=== PATIENT | male | born 1935 | race Caucasian/White ===

== ENCOUNTER → 2020-04-19 10:47 | Outpatient (BNVA) | payer MEDICARE, SELFPAY | PROVIDERS: Family Provider Family Medicine; PCP Family Medicine; Visit Provider Family Medicine | DX: I10 Essential (primary) hypertension (principal); I25.10 Atherosclerotic heart disease of native coronary artery without angina pectoris; I48.91 Unspecified atrial fibrillation; Z95.0 Presence of cardiac pacemaker; Z79.899 Other long term (current) drug therapy | CPT/HCPCS: 36415; 80053; 80061; 84439; 84443; 85025 ==

== ENCOUNTER → 2021-08-02 09:09 | Outpatient (BNVA) | payer MEDICARE, SELFPAY | PROVIDERS: Family Provider Family Medicine; PCP Family Medicine; Visit Provider Family Medicine | DX: I10 Essential (primary) hypertension (principal); I25.10 Atherosclerotic heart disease of native coronary artery without angina pectoris | CPT/HCPCS: 80053; 80061; 84439; 84443; 85025 ==

== ENCOUNTER → 2022-11-29 08:42 | Outpatient (BNVA) | payer MEDICARE, SELFPAY | PROVIDERS: Family Provider Family Medicine; PCP Family Medicine; Visit Provider Family Medicine | DX: R41.82 Altered mental status, unspecified (principal) | CPT/HCPCS: 81003; 87086 ==

== ENCOUNTER → 2024-06-09 09:40 | Outpatient (BNVA) | payer MEDICARE, MEDICAID, SELFPAY | PROVIDERS: Family Provider Family Medicine; PCP Family Medicine; Visit Provider Family Medicine | DX: R82.90 Unspecified abnormal findings in urine (principal) | CPT/HCPCS: 81000; 87086 ==

== ENCOUNTER 2024-06-15 08:59 | Emergency (ER) | payer MEDICARE, MEDICAID, SELFPAY ==
[2024-06-15] VITALS (11 sets, daily range): BP systolic 112–145; BP diastolic 52–85; PULSE 72–87; RESP 14–20; TEMP 36.6; O2SAT 94–98; BMI 23.6
--- NOTE | 2024-06-15 09:09 | ED_ITS ---
HPI - General Adult 2 General: Chief complaint: Altered Mental Status Stated complaint: ams - uti Time Seen by Provider: 06/15/24 09:08 History of Present Illness: 88-year-old male present s to the ER wit h AMS, no family present. He is from [place] in [facility]. Also complaining of L hip pain. [facility] had not x-[facility]ed anything because they did not note any deformities. Patient is currently on antibiotics and Azo's at the [facility] per their report. Associated symptoms: Deny chest pain, dyspnea or rash Related Data Home Medications Medication Instructions Recorded Confirmed loperamide 2 mg capsule 2 mg PO Q6H PRN Diarrhea 06/11/23 06/15/24 (Anti-Diarrheal (loperamide)) ondansetron HCl 8 mg tablet 8 mg PO Q8H PRN nausea and vomiting 06/11/23 06/15/24 acetaminophen 325 mg capsule 325 mg PO Q6H PRN Pain 06/20/23 06/15/24 (Tylenol) cholecalciferol (vitamin D3) 125 125 mcg PO DAILY 06/20/23 06/15/24 mcg (5,000 unit) capsule magnesium hydroxide 400 mg/5 mL 10 ml PO TID PRN stomach upset 06/20/23 06/15/24 oral suspension (Milk of Magnesia) furosemide 40 mg tablet 80 mg PO QAM edema 09/29/23 06/15/24 spironolactone 25 mg tablet 25 mg PO DAILY 09/29/23 06/15/24 tramadol 50 mg tablet 50 mg PO DAILY PRN Pain 01/01/24 06/15/24 bisacodyl 10 mg rectal suppository 10 mg SC DAILY 06/15/24 06/15/24 Previous Rx's Medication Instructions Recorded benazepril 40 mg tablet 40 mg PO DAILY #14 tabs 10/26/22 metoprolol succinate 25 mg See Rx Instructions .Route 10/26/22 tablet,extended release 24 hr .COMPLEX #14 tabs metoprolol succinate 50 mg 50 mg PO DAILY #14 tabs 10/26/22 tablet,extended release 24 hr potassium chloride 20 mEq 20 meq PO DAILY #14 tabs 10/26/22 tablet,extended release Allergies Allergy/AdvReac Type Severity Reaction Status Date / Time No Known Allergies Allergy Verified 08/27/24 22:21 Review of Systems 2 Const: Denies: fever(s) or chills Card: Denies: chest pain Resp: Denies: dyspnea GI: Denies: abdominal pain : Denies: dysuria, urinary frequency or urinary urgency Musc: Denies: neck pain or back pain Skin/Breast: Denies: rash PFSH ED 2 PFSH: Medical History Fracture Both wrists with hardware Unsteadiness on feet Muscle weakness (generalized) Acute systolic (congestive) heart failure Unspecified dementia, mild, without behavioral disturbance, psychotic disturbance, mood disturbance, and anxiety Essential (primary) hypertension Permanent atrial fibrillation Tonic pupil, right eye Intermittent exophthalmos, 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 attack (TIA), and cerebral infarction without residual deficits Cardiomyopathy, unspecified Anisocoria Repeated falls Metabolic encephalopathy Rhabdomyolysis Syncope and collapse Traumatic arthropathy, left hip Generalized edema Difficulty in walking, not elsewhere classified Weakness Hypokalemia Vitamin D deficiency, unspecified Localized edema Atrial fibrillation Pacemaker with Defibulator Hypertension Surgical History History of appendectomy Presence of left artificial hip joint Social History Smoking and tobacco/nicotine status: unknown if used tobacco/nicotine Quit status (tobacco/nicotine): has quit using Year quit tobacco: age 17, smoked 2 years Alcohol intake: never Physical Exam 2 Const: ORIENTATION/CONSCIOUSNESS: Yes awake HENMT: COMMON NORMALS: normocephalic, atraumatic and hearing grossly normal bilaterally HEAD & SCALP: normocephalic and atraumatic Resp: COMMON NORMALS: normal respiratory effort, No retractions, No use of accessory muscles and clear to auscultation bilaterally AUSCULTATION: clear to auscultation bilaterally Cardio: COMMON NORMALS: regular rate, regular rhythm and No murmurs present (Cardio) RATE: regular rate RHYTHM: regular rhythm GI: COMMON NORMALS: No hepatosplenomegaly present AUSCULTATION: Yes normoactive bowel sounds PALPATION: Yes Tenderness to palpation present (GI), No Guarding due to palpation present (GI) and Yes No hepatosplenomegaly present Extremity: COMMON NORMALS: normal to inspection, capillary refill normal, no clubbing, cyanosis or edema, no calf tenderness and no pedal edema Skin: COMMON NORMALS: no rashes or lesions noted GENERAL SKIN EXAM: no rashes or lesions noted Course 2 Vital Signs: Vital signs: Vital Signs Temperature 97.9 F 06/15/24 09:00 Pulse Rate 93 06/16/24 00:12 Respiratory Rate 18 06/16/24 00:12 Blood Pressure 139/77 06/16/24 00:12 Pulse Oximetry 97 06/16/24 00:12 Oxygen Delivery Me thod Room Air 06/15/24 22:00 MDM - General Adult Medical Decision Making UA shows positive nitrites +1 leukocyte Estrace however there is no white blood cells. Believe this is probably a partially treated UTI. Patient did have significant urinary retention but no compromise of renal function at this time. Lo catheter left in place for urinary retention. No leukocytosis. [facility] complete course of antibiotics. CT of the head did not show any acute changes. No fracture on pelvis or hip x-rays Medical Records I reviewed the patient's medical records. Lab Data I reviewed the patient's lab results. 06/15/24 09:30 06/15/24 10:16 Radiology Impressions Hip/Pelvis X-Ray 06/15/24 09:23 IMPRESSION: No acute abnormality. Pelvis X-Ray 06/15/24 10:42 IMPRESSION: No acute fracture identified. Head CT 06/15/24 11:46 IMPRESSION: 1. No evidence of intracranial hemorrhage or mass effect. 2. Chronic encephalomalacia in the parasagittal inferior frontal lobes likely due to prior trauma. 3. Vascular calcification. 4. No acute intracranial findings. Laboratory Results WBC 11.06 10^3/uL (3.29-11.43) 06/15/24 09:30 RBC 3.94 10^6/uL (3.85-5.65) 06/15/24 09:30 Hgb 11.90 g/dL (11.27-16.99) 06/15/24 09:30 Hct 36.3 % (37-53) L 06/15/24 09:30 MCV 92.1 fl (82-101) 06/15/24 09:30 MCH 30.2 pg (27-33) 06/15/24 09:30 MCHC 32.8 g/dL (30-55) 06/15/24 09:30 RDW 13.2 % (12.1-15.1) 06/15/24 09:30 Plt Count 226 10^3/cmm (157-399) 06/15/24 09:30 MPV 9.4 fL (7.4-10.4) 06/15/24 09:30 Neut % (Auto) 72.7 % 06/15/24 09:30 Lymph % (Auto) 14.9 % 06/15/24 09:30 [place] % (Auto) 10.9 % 06/15/24 09:30 Eos % (Auto) 0.7 % 06/15/24 09:30 Baso % (Auto) 0.3 % 06/15/24 09:30 Neut # (Auto) 8.03 10^3/uL (1.8-7.7) H 06/15/24 09:30 Lymph # (Auto) 1.7 10^3/uL (0.8-4.8) 06/15/24 09:30 [place] # (Auto) 1.2 10^3/uL (0.2-0.9) H 06/15/24 09:30 Eos # (Auto) 0.1 10^3/uL (0.0-0.8) 06/15/24 09:30 Baso # (Auto) 0.0 10^3/uL (0.0-0.1) 06/15/24 09:30 Nucleated RBC % (auto) 0 % 06/15/24 09:30 Nucleated RBCs # 0.0 /100WBC 06/15/24 09:30 Sodium 133 mmol/L (136-145) L 06/15/24 10:16 Potassium 4.4 mmol/L (3.5-5.1) 06/15/24 10:16 Chloride 97 mmol/L (98-107) L 06/15/24 10:16 Carbon Dioxide 25 mmol/L (22-29) 06/15/24 10:16 Anion Gap 15.4 (5-19) 06/15/24 10:16 BUN 25 mg/dL (8-23) H 06/15/24 10:16 Creatinine 0.9 mg/dL (0.7-1.2) 06/15/24 10:16 GFR Calculation Not Reportable 06/15/24 10:16 Glucose 124 mg/dL (65-115) H 06/15/24 10:16 Calculated Osmolality 282 mOsm/kg (285-295) L 06/15/24 10:16 Lactic Acid 1.1 mmol/L (0.5-2.2) 06/15/24 09:30 Calcium 8.9 mg/dL (8.5-10.5) 06/15/24 10:16 Total Bilirubin 1.0 mg/dL (0.15-1.2) 06/15/24 10:16 AST 16 U/L (0-40) 06/15/24 10:16 ALT 9 U/L (0-41) 06/15/24 10:16 Alkaline Phosphatase 65 U/L (40-130) 06/15/24 10:16 Total Protein 6.9 g/dL (6.6-8.7) 06/15/24 10:16 Albumin 3.7 g/dL (3.5-5.2) 06/15/24 10:16 Globulin 3.2 g/dL (1.3-4.6) 06/15/24 10:16 Urine Color [place] (Yellow) A 06/15/24 10:34 Urine Appearance Clear (CLEAR) 06/15/24 10:34 Urine pH 5.0 (5-7) 06/15/24 10:34 Ur Specific [place] 1.016 (1.005-1.030) 06/15/24 10:34 Urine Protein Trace (Negative) A 06/15/24 10:34 Urine Glucose (UA) Negative (Normal) 06/15/24 10:34 Urine Ketones Negative (Negative) 06/15/24 10:34 Urine Blood Negative (Negative) 06/15/24 10:34 Urine Nitrate Positive (Negative) A 06/15/24 10:34 Urine Bilirubin Negative (Negative) 06/15/24 10:34 Urine Urobilinogen 1.0 mg/dL (Negative) 06/15/24 10:34 Ur Leukocyte Esterase 1+ (Negative) A 06/15/24 10:34 Urine RBC 0-2 /hpf (0-2) 06/15/24 10:34 Urine WBC 0-5 /hpf (0-5) 06/15/24 10:34 Ur Squamous Epith Cells 0-5 /hpf (0-5) 06/15/24 10:34 Amorphous Sediment Not Reportable 06/15/24 10:34 Urine Bacteria None seen /hpf (NONE) 06/15/24 10:34 Hyaline Casts 8.67 /lpf 06/15/24 10:34 All radiology interpretation(s) finalized by discharge Discharge Plan Discharge Patient Disposition: Home Clinical Impression: Acute urinary retention, Cystitis Condition: Stable Prescriptions: No Action spironolactone 25 mg tablet 25 mg PO DAILY furosemide 40 mg tablet 80 mg PO QAM loperamide [Anti-Diarrheal (loperamide)] 2 mg capsule 2 mg PO Q6H PRN (Reason: Diarrhea) ondansetron HCl 8 mg tablet 8 mg PO Q8H PRN (Reason: nausea and vomiting) Rx Instructions: 1st dose 1-2 hr before radiation tramadol 50 mg tablet 50 mg PO DAILY PRN (Reason: Pain) magnesium hydroxide [Milk of Magnesia] 400 mg/5 mL suspension 10 ml PO TID PRN (Reason: stomach upset) acetaminophen [Tylenol] 325 mg capsule 325 mg PO Q6H PRN (Reason: Pain) cholecalciferol (vitamin D3) 125 mcg (5,000 unit) capsule 125 mcg PO DAILY benazepril 40 mg tablet 40 mg PO DAILY Qty: 14 0RF metoprolol succinate 50 mg tablet extended release 24 hr 50 mg PO DAILY Qty: 14 0RF Rx Instructions: with 25 mg =75mg metoprolol succinate 25 mg tablet extended release 24 hr See Rx Instructions .ROUTE .COMPLEX Qty: 14 0RF Dose Instruction: TAKE 1 TABLET EVERY DAY WITH METOPROLOL ER 50 MG TABLET FOR A TOTAL OF 75MG EVERY DAY Rx Instructions: TAKE 1 TABLET EVERY DAY WITH METOPROLOL ER 50 MG TABLET FOR A TOTAL OF 75MG EVERY DAY potassium chloride 20 mEq tablet extended release 20 meq PO DAILY Qty: 14 0RF bisacodyl [Biscolax] 10 mg Suppository 10 mg SC DAILY Discharge Orders: Discharge ED (Routine); Ordered 06/15/24 Ordered By: Shravan Anglin Referrals: Polo Wisdom, [Primary Care Provider] - Discharge Diet: Usual diet Discharge Activity: Resume usual activity Patient Instructions: Altered Mental Status (ED), Opioid Safety, Pain Management Activity Restrictions/Additional Instructions: Thank you for choosing [facility] your healthcare needs today. It is very important that you follow up as instructed or that you return to the Emergency Department should you have concerns or if your condition changes or worsens in any way. You were seen in the emergency room with bladder infection altered mental status according to the [facility] records you have been changed to Rocephin which it is sensitive to. You did have significant urinary retention but there is no worsening of your kidney function a Lo catheter was placed and drained out 1200 mL. You should continue your antibiotic at the [facility]. Catheter can be monitored and consider removal as per your primary care physician Coding Level of Care Code ED Delivery Analyst for Hayder Reyes
--- NOTE | 2024-06-15 09:16 | PC.PHAR ---
patient is from [facility]
--- NOTE | 2024-06-15 09:23 | XR_ITS ---
WS: [email or web address] XR hip LT 2-3V wo/w pel* [id number] REASON FOR EXAM: pain FINDINGS: Total left hip arthroplasty. No acute fracture. Old healed fracture of the lesser and greater trochanters. Prosthetic components are intact and in proper position and alignment. XR/XR hip LT 2-3V wo/w pel* [id number] IMPRESSION: No acute abnormality.
[2024-06-15 09:49] LABS: Basophils % 0.3 %; Eosinophils # 0.1 10^3/uL (0.0-0.8); Eosinophils % 0.7 %; Hematocrit 36.3 % (37-53); Lymphocytes # 1.7 10^3/uL (0.8-4.8); Lymphocytes % 14.9 %; Mean Corpuscular HGB Conc 32.8 g/dL (30-55); Mean Corpuscular Hemoglobin 30.2 pg (27-33); Mean Corpuscular Volume 92.1 fl (82-101); Mean Platelet Volume 9.4 fL (7.4-10.4); Monocytes # 1.2 10^3/uL (0.2-0.9); Monocytes % 10.9 %; Neutrophils # 8.03 10^3/uL (1.8-7.7); Neutrophils % 72.7 %; Nucleated Red Blood Cells % 0 %; Platelet Count 226 10^3/cmm (157-399); Red Blood Count 3.94 10^6/uL (3.85-5.65); Red Cell Distribution Width 13.2 % (12.1-15.1); White Blood Count 11.06 10^3/uL (3.29-11.43)
[2024-06-15 10:10] LABS: Lactic Sepsis W/Reflex 1.1 mmol/L (0.5-2.2)
--- NOTE | 2024-06-15 10:42 | XR_ITS ---
WS: [email or web address] XR pelvis 1-2V* [id number] REASON FOR EXAM: FALL FINDINGS: No insufficiency fracture of the sacrum identified. Iliac wings are intact. Superior and inferior pubic rami are intact without fracture identified. Chronic appearing displaced subcapital fracture on the right. Total left hip arthroplasty on the left . XR/XR pelvis 1-2V* [id number] IMPRESSION: No acute fracture identified.
[2024-06-15 10:57] LABS: Bilirubin Urine Negative (Negative); Blood Urine Negative (Negative); Glucose Urine UA Negative (Normal); Ketones Urine Negative (Negative); Leukocyte Esterase Urine 1+ (Negative); Nitrate Urine Positive (Negative); Protein Urine Trace (Negative); Specific Gravity, Urine 1.016 (1.005-1.030); Urine Appearance Clear (CLEAR)
[2024-06-15 11:02] LABS: Add Urine Microscopic? YES; Bacteria Urine None Seen /hpf; Hyaline Casts Urine 8.67 /lpf; RBC Urine 0-2 /hpf (0-2); Squamous Epithelial Cell Urine 0-5 /hpf (0-5); Universal Test for UA Present (0); WBC Urine 0-5 /hpf (0-5)
[2024-06-15 11:03] LABS: Alanine Aminotransferase 9 U/L (0-41); Albumin Level 3.7 g/dL (3.5-5.2); Alkaline Phosphatase 65 U/L (40-130); Anion Gap 15.4 (5-19); Aspartate Amino Transferase 16 U/L (0-40); Blood Urea Nitrogen 25 mg/dL (8-23); Calcium 8.9 mg/dL (8.5-10.5); Carbon Dioxide 25 mmol/L (22-29); Chloride 97 mmol/L (98-107); Creatinine Clr Calc Pharmacy 59.5417; Globulin 3.2 g/dL (1.3-4.6); Glucose 124 mg/dL (65-115); Osmolality Calculated 282 mOsm/kg (285-295); Potassium 4.4 mmol/L (3.5-5.1); Sodium 133 mmol/L (136-145); Total Protein 6.9 g/dL (6.6-8.7)
[2024-06-15 11:07] LABS: Add Urine Culture? Yes; UA Slide Review UA Slide Review Perf; Urine Color Orange (Yellow)
--- NOTE | 2024-06-15 11:46 | CT_ITS ---
WS: [id number] CT HEAD TECHNIQUE: Noncontrast CT of the head obtained from the skullbase to the vertex. CLINICAL INFORMATION: AMS COMPARISON: None. DLP: 1192.[address] scans at [facility] use at least one of these dose optimization techniques: automated e xposure control; mA and/or kV adjustment per patient size (includes targeted exams where dose is matc hed to clinical indication); or iterative reconstruction. FINDINGS: No evidence of intracranial hemorrhage or mass effect. Ventricular system and basal cisterns are lee nt. Moderate small vessel changes with moderate to advanced parenchymal volume loss. No extra-axial f luid collections. No evidence of mass or mass effect. Chronic encephalomalacia in the parasagittal in ferior frontal lobes bilaterally likely due to prior trauma. Paranasal sinuses and mastoid air cells are well aerated. .Normal visualized soft tissues. CT/CT head wo con* [id number] IMPRESSION: 1. No evidence of intracranial hemorrhage or mass effect. 2. Chronic encephalomalacia in the parasagittal inferior frontal lobes likely due to prior trauma. 3. Vascular calcification. 4. No acute intracranial findings.
--- NOTE | 2024-06-16 00:10 | PC.NURSE ---
NURSE ATTEMPTED TO CALL REPORT TO MI AT 0010. PHONE NUMBER ON PAPERWORK WAS [phone]. NURSE CALLED THIS NUMBER AND NO ANSWER AT THIS TIME.
[2024-06-16 00:12] VITALS: BP 139/77; PULSE 93; RESP 18; O2SAT 97
== END 2024-06-16 00:15 | disposition home or self-care (01) ==
PROVIDERS: Emergency Provider Family Medicine; PCP Family Medicine
DX: R33.9 Retention of urine, unspecified (principal); N30.90 Cystitis, unspecified without hematuria; I10 Essential (primary) hypertension; Z95.0 Presence of cardiac pacemaker; Z87.891 Personal history of nicotine dependence
CPT/HCPCS: 36415; 51702; 51798; 70450; 72170; 73502; 80053; 81001; 83605; 85025; 87040; 87086; 99284

== ENCOUNTER → 2024-06-17 09:00 | Outpatient (BNVA) | payer MEDICARE, MEDICAID, SELFPAY | PROVIDERS: PCP Family Medicine; Visit Provider Nurse Practitioner Family | DX: R33.8 Other retention of urine (principal) | CPT/HCPCS: 81000; 87086 ==

== ENCOUNTER 2024-07-24 12:24 | Inpatient (IN) | payer MEDICARE, MEDICAID, SELFPAY ==
[2024-07-24] VITALS (8 sets, daily range): BP systolic 110–145; BP diastolic 51–71; PULSE 68–96; RESP 17–18; TEMP 36.6–37.2; O2SAT 92–97; BMI 23.7
--- NOTE | 2024-07-24 12:37 | XR_ITS ---
WS: [email or web address] Exam: XR hip RT 2-3V wo/w pel* [id number] Date/Time of Exam: 07/24/2024 12:37 PM Reason For Exam: fall Compared to pelvis performed 06/15/2024. Chronic displaced subcapital fracture of the RIGHT hip noted. The RIGHT pelvis is intact. Soft tissue calcification about the proximal RIGHT femur. XR/XR hip RT 2-3V wo/w pel* [id number] IMPRESSION: 1. Chronic displaced subcapital fracture of the RIGHT hip. No new fracture iden tified.
--- NOTE | 2024-07-24 12:37 | XR_ITS ---
WS: [email or web address] Exam: XR chest 1V portable [id number] Date/Time of Exam: 07/24/2024 12:37 PM Reason For Exam: fall No priors. Marked cardiac enlargement. The lungs are clear and fully inflated. A permanent cardiac pacer superim poses the LEFT chest. Bony structures appear to be intact. XR/XR chest 1V portable [id number] IMPRESSION: 1. Marked cardiac enlargement with unusual heart shape. This may be due to rota tion of the chest however other considerations would include pericardial effusi on. 2. The lungs are clear and no acute infiltrates were noted.
--- NOTE | 2024-07-24 12:48 | ED_ITS ---
HPI - Extremity Problem General: Chief complaint: Extremity Injury, Lower Stated complaint: rt hip fx Time Seen by Provider: 07/24/24 12:34 Source: patient and EMS Mode of arrival: EMS Limitations: no limitations History of Present Illness: 88-year-old male is here from [facility] with a known right hip fracture. Unknown when he had had a fall patient here is complaining of no pain currently. He does have pain when he moves but at rest 0 pain. Related Data Home Medications Medication Instructions Recorded Confirmed loperamide 2 mg capsule 2 mg PO Q6H PRN Diarrhea 06/11/23 07/24/24 (Anti-Diarrheal (loperamide)) bisacodyl 10 mg rectal suppository 10 mg IN DAILY 06/15/24 07/24/24 acetaminophen 325 mg tablet 650 mg PO Q6H PRN Pain 07/24/24 07/24/24 (Tylenol) apixaban 5 mg tablet (Eliquis) 5 mg PO BID 07/24/24 07/24/24 artificial tears with lanolin eye 1 applic ophthalmic (eye) Q8H 07/24/24 ointment aspirin 81 mg tablet,delayed 81 mg PO DAILY 07/24/24 07/24/24 release atorvastatin 40 mg tablet 40 mg PO QPM 07/24/24 07/24/24 camphor-menthol 0.2 %-3.5 % 1 applic topical Q4H PRN Pain 07/24/24 07/24/24 topical gel cefdinir 300 mg capsule 300 mg PO Q12H 07/24/24 07/24/24 cholecalciferol (vitamin D3) 125 125 mcg PO DAILY 07/24/24 07/24/24 mcg (5,000 unit) tablet (Vitamin D3) guaifenesin 200 mg/5 mL oral liquid 400 mg PO Q4H 07/24/24 07/24/24 honey 80 % topical gel (MediHoney 1 applic topical DAILY 07/24/24 07/24/24 (honey)) magnesium hydroxide 400 mg/5 mL 10 ml PO DAILY PRN Constipation 07/24/24 07/24/24 oral suspension (Milk of Magnesia) methimazole 5 mg tablet 5 mg PO DAILY 07/24/24 07/24/24 zinc oxide 1 applic topical QPM PRN apply to 07/24/24 07/24/24 buttock nightly Previous Rx's Medication Instructions Recorded metoprolol succinate 50 mg 50 mg PO DAILY #14 tabs 10/26/22 tablet,extended release 24 hr tramadol 50 mg tablet 50 mg PO BID #60 tabs 07/17/24 Allergies Allergy/AdvReac Type Severity Reaction Status Date / Time No Known Allergies Allergy Verified 04/07/24 22:21 [facility] ED PFSH: Medical History Fracture Both wrists with hardware Unsteadiness on feet Muscle weakness (generalized) Acute systolic (congestive) heart failure Unspecified dementia, mild, without behavioral disturbance, psychotic disturbance, mood disturbance, and anxiety Essential (primary) hypertension Permanent atrial fibrillation Tonic pupil, right eye Intermittent exophthalmos, 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 attack (TIA), and cerebral infarction without residual deficits Cardiomyopathy, unspecified Anisocoria Repeated falls Metabolic encephalopathy Rhabdomyolysis Syncope and collapse Traumatic arthropathy, left hip Generalized edema Difficulty in walking, not elsewhere classified Weakness Hypokalemia Vitamin D deficiency, unspecified Localized edema Atrial fibrillation Pacemaker with Defibulator Hypertension Surgical History History of appendectomy Presence of left artificial hip joint Social History Smoking and tobacco/nicotine status: unknown if used tobacco/nicotine Quit status (tobacco/nicotine): has quit using Year quit tobacco: age 17, smoked 2 years Alcohol intake: never Course Vital Signs: Vital signs: Vital Signs Temperature 98.9 F 07/24/24 12:26 Pulse Rate 92 07/24/24 12:26 Respiratory Rate 17 07/24/24 12:26 Blood Pressure 128/68 07/24/24 12:26 Pulse Oximetry 97 07/24/24 12:26 Oxygen Delivery Me thod Room Air 07/24/24 12:26 MDM - Extremity (Nontraumatic) Medical Decision Making Patient presents with chronic right hip fracture family is not wanting to have a fix is already spoke to Dr. Bean I spoke to Dr. Bean who knows of patient will admit to the hospitalist at this time. Medical Records I reviewed the patient's medical records. Lab Data I reviewed the patient's lab results. Radiology Impressions Chest X-Ray 07/24/24 12:37 IMPRESSION: 1. Marked cardiac enlargement with unusual heart shape. This may be due to rotation of the chest however other considerations would include pericardial effusion. 2. The lungs are clear and no acute infiltrates were noted. Hip/Pelvis X-Ray 07/24/24 12:37 IMPRESSION: 1. Chronic displaced subcapital fracture of the RIGHT hip. No new fracture identified. All radiology interpretation(s) finalized by discharge EKG Data EKG 1: I personally reviewed and interpreted this EKG as follows: EKG interpretation date: 07/24/24 EKG interpretation time: 13:15 Interpretation: paced hr [address] elevation qrs 150 qtc 431 Discharge Plan Discharge Patient Disposition: Admitted As Inpatient Clinical Impression: Fracture of hip Condition: Stable Prescriptions: No Action loperamide [Anti-Diarrheal (loperamide)] 2 mg capsule 2 mg PO Q6H PRN (Reason: Diarrhea) metoprolol succinate 50 mg tablet extended release 24 hr 50 mg PO DAILY Qty: 14 0RF tramadol 50 mg tablet 50 mg PO BID Qty: 60 5RF bisacodyl [Biscolax] 10 mg Suppository 10 mg IN DAILY atorvastatin 40 mg Tablet 40 mg PO QPM acetaminophen [Tylenol] 325 mg Tablet 650 mg PO Q6H PRN (Reason: Pain) aspirin [Aspir-81] 81 mg Tablet,Delayed Release (Dr/Ec) 81 mg PO DAILY magnesium hydroxide [Milk of Magnesia] 400 mg/5 mL Suspension 10 ml PO DAILY PRN (Reason: Constipation) methimazole 5 mg Tablet 5 mg PO DAILY cefdinir 300 mg Capsule 300 mg PO Q12H zinc oxide Ointment 1 applic TOPICAL QPM PRN (Reason: apply to buttock nightly) guaifenesin 200 mg/5 mL Liquid 400 mg PO Q4H Rx Instructions: take 10 ml b mouth every 4 hours as needed Artificial Tears Ointment 1 applic OPHTHALMIC (EYE) Q8H cholecalciferol (vitamin D3) [Vitamin D3] 125 mcg (5,000 unit) Tablet 125 mcg PO DAILY Biofreeze 0.2-3.5 % Gel 1 applic TOPICAL Q4H PRN (Reason: Pain) Rx Instructions: rub in gently and completely MediHoney (honey) 80 % Gel 1 applic TOPICAL DAILY Eliquis 5 mg Tablet 5 mg PO BID Referrals: Polo Wisdom DO [Primary Care Provider] - Coding Level of Care Code ED Licensing Registration Examiner for Hayder Reyes
--- NOTE | 2024-07-24 13:09 | XR_ITS ---
WS: [email or web address] Exam: XR pelvis 1-2V* [id number] Date/Time of Exam: 07/24/2024 1:09 PM Reason For Exam: fall No acute pelvic fracture. Chronic RIGHT subcapital fracture with displacement. A LEFT hip prosthesis is noted with some gapping of the joint compartment. Soft tissues are unremarkable. Constipation. XR/XR pelvis 1-2V* [id number] IMPRESSION: 1. No acute pelvic fracture. 2. Chronic hip findings as above.
--- NOTE | 2024-07-24 13:09 | XR_ITS ---
WS: [email or web address] Exam: XR femur RT min 2V* [id number] Date/Time of Exam: 07/24/2024 1:09 PM Reason For Exam: fall Chronically displaced subcapital fracture of the RIGHT hip noted. The remaining aspects of the femur are intact. XR/XR femur RT min 2V* [id number] IMPRESSION: 1. Chronically displaced subcapital fracture of the RIGHT femur. The femur is o therwise intact.
--- NOTE | 2024-07-24 13:13 | PC.PHAR ---
patient is from [facility]
--- NOTE | 2024-07-24 13:15 | ECG_ITS ---
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 Measurements Intervals [place] Rate: 72 P: 52 [place]: 166 QRS: 145 QRSD: 150 T: 42 QT: 407 QTc: 447 Interpretive Statements ELECTRONIC VENTRICULAR PACEMAKER -- CONTOUR ANALYSIS BASED ON INTRINSIC RHYTHM RIGHT AXIS DEVIATION [QRS AXIS > 100] INTRAVENTRICULAR CONDUCTION DELAY [130+ ms QRS DURATION] No previous ECG available for comparison Electronically Signed On 07-24-2024 21:56:31 HORSE RACING MANAGER by Jerzy Carrillo M.D. [email or web address]
[2024-07-24 14:05] LABS: Basophils % 0.5 %; Eosinophils # 0.1 10^3/uL (0.0-0.8); Hematocrit 24.8 % (37-53); Lymphocytes # 1.6 10^3/uL (0.8-4.8); Lymphocytes % 24.5 %; Mean Corpuscular HGB Conc 32.3 g/dL (30-55); Mean Corpuscular Hemoglobin 30.3 pg (27-33); Mean Corpuscular Volume 93.9 fl (82-101); Mean Platelet Volume 8.5 fL (7.4-10.4); Monocytes # 0.6 10^3/uL (0.2-0.9); Monocytes % 9.7 %; Neutrophils # 4.16 10^3/uL (1.8-7.7); Nucleated Red Blood Cells % 0 %; Platelet Count 269 10^3/cmm (157-399); Red Blood Count 2.64 10^6/uL (3.85-5.65); Red Cell Distribution Width 15.1 % (12.1-15.1)
[2024-07-24 14:22] LABS: INR 1.85 (0.8-1.2)
[2024-07-24 14:26] LABS: Alanine Aminotransferase 14 U/L (0-41); Albumin Level 2.8 g/dL (3.5-5.2); Alkaline Phosphatase 77 U/L (40-130); Anion Gap 12.2 (5-19); Aspartate Amino Transferase 26 U/L (0-40); Blood Urea Nitrogen 9 mg/dL (8-23); Calcium 8.6 mg/dL (8.5-10.5); Carbon Dioxide 28 mmol/L (22-29); Chloride 94 mmol/L (98-107); Creatinine Clr Calc Pharmacy 65.9636; Globulin 2.9 g/dL (1.3-4.6); Glucose 100 mg/dL (65-115); Osmolality Calculated 269 mOsm/kg (285-295); Potassium 4.2 mmol/L (3.5-5.1); Sodium 130 mmol/L (136-145); Total Bilirubin 0.8 mg/dL (0.15-1.2); Total Protein 5.7 g/dL (6.6-8.7)
--- NOTE | 2024-07-24 16:19 | PC.NURSE ---
This HS spoke with [facility] staffing rn and verified last time patient took Elliquis and Aspirin. Last PO admin was from this morning 07/24/24. Dr Bean being notified of date/mg taken for tentative surgery date.
--- NOTE | 2024-07-24 16:45 | P.CONIM_ITS ---
Providers/Reason For Consult 2 Consulting Physician/Specialty*: Jimmy Bean DO/orthopedic surgery Reason for Consult*: Right hip displaced femoral neck fracture Requesting Physician: Dr. Currie Attending Physician: Darío Ordaz MD Primary Care Provider: Polo Wisdom DO History of Present Illness History of Present Illness Imtiaz Villegas is a 88 year old male with a history of A-fib on Eliquis. Presents to the emergency department with having ongoing right hip pain after he sustained a fall several weeks ago patient does have a displaced right hip femoral neck fracture this does appear to be more subacute/chronic. Patient is able to respond and answer questions. Currently [facility] a [facility]. He has been unable to weight-bear. Denies any fevers chills chest pain or shortness of breath. Patient is brought in from the [facility] and after having right hip displaced femoral neck fracture orthopedics was consulted for evaluation and treatment recommendations. Review of Systems 2 General: Reports: 10 or more systems reviewed and unremarkable except in HPI and below Medications/Allergies Home Medications Medication Instructions Recorded Confirmed Last Taken Type metoprolol succinate 50 mg 50 mg PO DAILY #14 tabs 10/26/22 07/26/24 Unknown Rx tablet,extended release 24 hr loperamide 2 mg capsule 2 mg PO Q6H PRN Diarrhea 06/11/23 07/26/24 Unknown History (Anti-Diarrheal (loperamide)) bisacodyl 10 mg rectal suppository 10 mg [place] DAILY 06/15/24 07/26/24 Unknown History tramadol 50 mg tablet 50 mg PO BID #60 tabs 07/17/24 07/26/24 Unknown Rx acetaminophen 325 mg tablet 650 mg PO Q6H PRN Pain 07/24/24 07/26/24 Unknown History (Tylenol) apixaban 5 mg tablet (Eliquis) 5 mg PO BID 07/24/24 07/26/24 Unknown History artificial tears with lanolin eye 1 applic ophthalmic (eye) Q8H 07/24/24 07/26/24 Unknown History ointment aspirin 81 mg tablet,delayed 81 mg PO DAILY 07/24/24 07/26/24 Unknown History release atorvastatin 40 mg tablet 40 mg PO QPM 07/24/24 07/26/24 Unknown History camphor-menthol 0.2 %-3.5 % 1 applic topical Q4H PRN Pain 07/24/24 07/26/24 Unknown History topical gel cefdinir 300 mg capsule 300 mg PO Q12H 07/24/24 07/26/24 Unknown History cholecalciferol (vitamin D3) 125 125 mcg PO DAILY 07/24/24 07/26/24 Unknown History mcg (5,000 unit) tablet (Vitamin D3) guaifenesin 200 mg/5 mL oral liquid 400 mg PO Q4H 07/24/24 07/26/24 Unknown History honey 80 % topical gel (MediHoney 1 applic topical DAILY 07/24/24 07/26/24 Unknown History (honey)) magnesium hydroxide 400 mg/5 mL 10 ml PO DAILY PRN Constipation 07/24/24 07/26/24 Unknown History oral suspension (Milk of Magnesia) methimazole 5 mg tablet 5 mg PO DAILY 07/24/24 07/26/24 Unknown History zinc oxide 1 applic topical QPM PRN apply to 07/24/24 07/26/24 Unknown History buttock nightly Allergies Allergy/AdvReac Type Severity Reaction Status Date / Time No Known Allergies Allergy Verified 07/26/24 14:15 Current Medications Generic Name Dose Route Start Last Admin Trade Name Freq PRN Reason Stop Dose Admin Hydrocodone Bitart/Acetaminophen 1 tab 07/24/24 17:59 07/25/24 14:15 Hydrocodone-Acetaminophen 5-325 Mg Tablet PO 1 tab Q6H PRN Administration MODERATE PAIN Aspirin 81 mg 07/25/24 09:00 07/25/24 08:41 Aspirin 81 Mg Ec Tablet PO 81 mg DAILY PARAM Administration Heparin Sodium (Porcine) 5,000 unit 07/24/24 17:15 07/25/24 04:17 Heparin 5,000 Unit/Ml Inj 1 Ml SUBCUT 5,000 unit Q12H PARAM Administration Iron Sucrose 200 mg/ Sodium 110 mls @ 220 mls/hr 07/24/24 18:30 07/24/24 21:10 Chloride IV 07/28/24 21:29 Infused Q24H PARAM Infusion Methimazole 5 mg 07/25/24 09:00 07/25/24 08:41 Methimazole 5 Mg Tablet PO 5 mg DAILY PARAM Administration Metoprolol Succinate 50 mg 07/25/24 09:00 07/25/24 08:41 Metoprolol Succinate Er (24 Hr) 50 Mg Tablet PO 50 mg DAILY PARAM Administration Morphine Sulfate 2 mg 07/24/24 17:26 07/25/24 14:14 Morphine 4 Mg/Ml Sdv 1 Ml IVP 2 mg Q4H PRN Administration SEVERE PAIN Pantoprazole Sodium 40 mg 07/24/24 17:30 07/25/24 08:41 Pantoprazole 40 Mg Sdv IVP 40 mg Q12H PARAM Administration Tramadol HCl 50 mg 07/24/24 18:00 07/25/24 08:41 Tramadol 50 Mg Tablet PO 50 mg BID PARAM Administration PFSH Acute 2 PFSH: Medical History Fracture Both wrists with hardware Unsteadiness on feet Muscle weakness (generalized) Acute systolic (congestive) heart failure Unspecified dementia, mild, without behavioral disturbance, psychotic disturbance, mood disturbance, and anxiety Essential (primary) hypertension Permanent atrial fibrillation Tonic pupil, right eye Intermittent exophthalmos, 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 attack (TIA), and cerebral infarction without residual deficits Cardiomyopathy, unspecified Anisocoria Repeated falls Metabolic encephalopathy Rhabdomyolysis Syncope and collapse Traumatic arthropathy, left hip Generalized edema Difficulty in walking, not elsewhere classified Weakness Hypokalemia Vitamin D deficiency, unspecified Localized edema Atrial fibrillation Pacemaker with Defibulator Hypertension Surgical History History of appendectomy Presence of left artificial hip joint Social History Smoking and tobacco/nicotine status: unknown if used tobacco/nicotine Quit status (tobacco/nicotine): has quit using Year quit tobacco: age 17, smoked 2 years Alcohol intake: never Vitals/I&O/Wt Last Vital Signs Temp 97.8 F 07/25/24 15:09 Pulse 69 07/25/24 15:09 Resp 16 07/25/24 15:09 BP 128/74 07/25/24 15:09 Pulse Ox 96 07/25/24 15:09 O2 Del Method Room Air 07/25/24 11:54 07/25/24 07/25/24 07/25/24 06:59 14:59 22:59 Intake Total 0 / 0 250 / 250 Output Total 750 / 750 Balance -750 / -640 0 / 0 250 / 250 Weight last 48 hrs Weight 165 lb 4.8 oz Weight 165 lb 4.8 oz Weight 170 lb Weight 154 lb Physical Exam 2 Narrative: Patient is able to to follow commands and perform a standard?examination.?? Examination right lower extremity: Examination of the right lower extremity demonstrates patient has tenderness palpation of the right?hip?as well as the right lower extremity is shortened and externally rotated pt has positive logroll on?examination unable to perform Stinchfield's secondary to pain and discomfort.? Patient is able to wiggle toes plantarflex and dorsiflex ankle sensations intact to light touch distally.? Distal pulses are palpable right lower extremity is warm and well-perfused.? Mild swelling noted about the right?hip.?? Secondary survey?examination unremarkable For any acute pathology to the bilateral upper extremities or contralateral lower extremity.? pt? has no tenderness to palpation to the bilateral upper extremities joints and no noticeable deformities.? ?gross motor and sensory is intact to the bilateral upper extremities.? Contralateral lower extremity has tenderness to the?hip?knee or ankle with no appreciable deformities and is able to plantarflex and dorsiflex ankle sensations intact to light touch distally as well as wiggle toes.? Distal pulses palpable.? Negative pelvic compression test, no tenderness palpation of the spine. Urinary Catheter Management: Lo: Cath Placed During This Visit: yes Reason for Continuing Indwelling Catheter: Chronic Indwelling Urinary Catheter on Admission Urinary Catheter Date of Insertion: 07/24/24 Data 07/27/24 05:10 07/27/24 05:10 Xray Ortho: Radiologist's impression: Ordering Provider/Ordering MD: Jevon Currie MD Date of Service: 07/24/24 Procedure(s): XR hip RT 2-3V wo/w pel* [id number] Accession Number(s): [id number] Report Number: [id number] WS: [email or web address] Exam: XR hip RT 2-3V wo/w pel* [id number] Date/Time of Exam: 07/24/2024 12:37 PM Reason For Exam: fall Compared to pelvis performed 06/15/2024. Chronic displaced subcapital fracture of the RIGHT hip noted. The RIGHT pelvis is intact. Soft tissue calcification about the proximal RIGHT femur. XR/XR hip RT 2-3V wo/w pel* [id number] IMPRESSION: 1. Chronic displaced subcapital fracture of the RIGHT hip. No new fracture identified. Ordering Provider/Ordering MD: Jevon Currie MD Date of Service: 07/24/24 Procedure(s): XR femur RT min 2V* [id number] Accession Number(s): [id number] Report Number: [id number] WS: [email or web address] Exam: XR femur RT min 2V* [id number] Date/Time of Exam: 07/24/2024 1:09 PM Reason For Exam: fall Chronically displaced subcapital fracture of the RIGHT hip noted. The remaining aspects of the femur are intact. XR/XR femur RT min 2V* [id number] IMPRESSION: 1. Chronically displaced subcapital fracture of the RIGHT femur. The femur is otherwise intact. rdering Provider/Ordering MD: Jevon Currie MD Date of Service: 07/24/24 Procedure(s): XR pelvis 1-2V* [id number] Accession Number(s): [id number] Report Number: [id number] WS: [email or web address] Exam: XR pelvis 1-2V* [id number] Date/Time of Exam: 07/24/2024 1:09 PM Reason For Exam: fall No acute pelvic fracture. Chronic RIGHT subcapital fracture with displacement. A LEFT hip prosthesis is noted with some gapping of the joint compartment. Soft tissues are unremarkable. Constipation. XR/XR pelvis 1-2V* [id number] IMPRESSION: 1. No acute pelvic fracture. 2. Chronic hip findings as above. rdering Provider/Ordering MD: Darío Ordaz MD Date of Service: 07/24/24 Procedure(s): CT pelvis w con* [id number] Accession Number(s): [id number] Report Number: [id number] PROCEDURE INFORMATION: Exam: CT Pelvis With Contrast Exam date and time: 07/24/2024 8:54 PM Age: 88 years old Clinical indication: Hip pain; Right hip; Prior surgery; Surgery date: 6+ months; Surgery type: Lt hip hemiarthroplasty; Patient HX: RT hip FX; Low hemoglobin; HX lt hemiarthroplasty TECHNIQUE: Imaging protocol: Computed tomography of the pelvis with contrast. Radiation optimization: All CT scans at this facility use at least one of these dose optimization techniques: automated exposure control; mA and/or kV adjustment per patient size (includes targeted exams where dose is matched to clinical indication); or iterative reconstruction. Contrast material: [id number]; Contrast volume: 100 ml; Contrast route: INTRAVENOUS (IV); COMPARISON: CR XR pelvis 1-2V* [id number] 07/24/2024 1:16 PM RADIATION DOSE METRICS: Total DLP (mGy-cm): 431.1 FINDINGS: Intestine: Constipation. Diverticulosis without diverticulitis. Appendix: No evidence of appendicitis. Intraperitoneal space: Unremarkable. No free air. No significant fluid collection. Vasculature: Aortic atherosclerotic calcifications. Lymph nodes: Unremarkable. No enlarged lymph nodes. Reproductive: Normal as visualized. Urinary bladder: Lo catheter in the urinary bladder. Bones/joints: Right femur subcapital hip fracture with 1 full shaft displacement. Left hip arthroplasty changes. Soft tissues: Anasarca. Right inguinal canal fluid. CT/CT pelvis w con* [id number] IMPRESSION: 1. Right femur subcapital hip fracture with 1 full shaft displacement. 2. Left hip arthroplasty changes. 3. Aortic atherosclerotic calcifications. 4. Constipation. 5. Diverticulosis without diverticulitis. 6. Anasarca. 7. Lo catheter in the urinary bladder. 8. Right inguinal canal fluid. A&P Assessment and plan (1) Displaced fracture of right femoral neck: Plan Orthopedics consulted Hospitalist admitted patient is primary Imaging reviewed?displaced right?hip?femoral neck fracture Labs reviewed Pain control Nonweightbearing right lower extremity May have a diet today Hold Eliquis as patient had already had this today Plan will be for right hip hemiarthroplasty on Saturday MDM: Patient pleasant 88-year-old gentleman who had a previous fall several weeks ago and is found to have a right hip displaced femoral neck fracture which does appear to be subacute to chronic in nature continues to have pain on ability to bear weight on this we talked about his treatment options. He currently is at a [facility]. My recommendations at this point in time would be for right hip hemiarthroplasty we talked about this in detail as far as the ins and outs procedure risk benefits complication alternatives surgery. Risk of surgery to not limited to make a better make it worse injury nerves vessels or tendons, infection, instability, leg length discrepancies, persistent pain. Understanding risk of surgery patient elects proceed with surgical invention. All questions answered at this time. He did take his Eliquis this morning and at this point in time feel patient would benefit from getting better optimized as well as planning to proceed with surgical intervention on Saturday talked about this he will get medically optimized with the hospitalist which I did talk about this with him. Given this is not a presentation of a standard acute hip fracture I feel he is better to be optimized from a anticoagulation standpoint and we will plan to take him on Saturday for right hip hemiarthroplasty. Patient understands and agrees with current plan. Questions answered. Coding Level of Care Code Acute Code for g Fwd Diagnoses Displaced fracture of right femoral neck S72.001A Time Spent (min) 45
--- NOTE | 2024-07-24 17:02 | CTR_ITS ---
PROCEDURE INFORMATION: Exam: CT Pelvis With Contrast Exam date and time: 07/24/2024 8:54 PM Age: 88 years old Clinical indication: Hip pain; Right hip; Prior surgery; Surgery date: 6+ months; Surgery type: Lt hip hemiarthroplasty; Patient HX: RT hip FX; Low hemoglobin; HX lt hemiarthroplasty TECHNIQUE: Imaging protocol: Computed tomography of the pelvis with contrast. Radiation optimization: All CT scans at this facility use at least one of these dose optimization techniques: automated exposure control; mA and/or kV adjustment per patient size (includes targeted exams where dose is matched to clinical indication); or iterative reconstruction. Contrast material: [id number]; Contrast volume: 100 ml; Contrast route: INTRAVENOUS (IV); COMPARISON: CR XR pelvis 1-2V* [id number] 07/24/2024 1:16 PM RADIATION DOSE METRICS: Total DLP (mGy-cm): 431.1 FINDINGS: Intestine: Constipation. Diverticulosis without diverticulitis. Appendix: No evidence of appendicitis. Intraperitoneal space: Unremarkable. No free air. No significant fluid collection. Vasculature: Aortic atherosclerotic calcifications. Lymph nodes: Unremarkable. No enlarged lymph nodes. Reproductive: Normal as visualized. Urinary bladder: Lo catheter in the urinary bladder. Bones/joints: Right femur subcapital hip fracture with 1 full shaft displacement. Left hip arthroplasty changes. Soft tissues: Anasarca. Right inguinal canal fluid. CT/CT pelvis w con* [id number] IMPRESSION: 1. Right femur subcapital hip fracture with 1 full shaft displacement. 2. Left hip arthroplasty changes. 3. Aortic atherosclerotic calcifications. 4. Constipation. 5. Diverticulosis without diverticulitis. 6. Anasarca. 7. Lo catheter in the urinary bladder. 8. Right inguinal canal fluid.
--- NOTE | 2024-07-24 17:12 | P.HP_ITS ---
Providers/Chief Complaint 2 Admitting Physician: Janeth Hills MD Primary Care Provider: Polo Wisdom DO Chief Complaint: rt hip fx History of Present Illness Imtiaz Villegas is a 88 year old male with past medical history of atrial fibrillation on Eliquis for anticoagulation, hyperlipidemia, hypothyroidism, high blood pressure, jail resident, chronic Lo for urinary retention was sent into the ER today because of hip pain. As per the patient he fell few weeks ago but not really sure how and involved circumstances. In the ER he was found to have a chronic right hip fracture. He is complaining of pain on the right side of hip on movement. Orthopedics was consulted. Patient himself denies any nausea vomiting, headache, dizziness, dysuria, constipation, diarrhea. Denies any hematemesis or melena. Last bowel movement was today morning. Review of Systems 2 General: Reports: 10 or more systems reviewed and unremarkable except in HPI and below Const: Denies: fever(s), chills, body aches, change in appetite, change in weight, malaise, night sweats, diaphoresis, change in sleep pattern, daytime sleepiness or snoring Eyes: Denies: change in vision, blurry vision, photophobia, eye discomfort or eye discharge ENMT: Denies: throat pain, enlarged tonsils, hoarseness, mouth pain, oral sores, dry mouth, tinnitus, nasal congestion or post nasal drip Card: Denies: chest pain, palpitations, irregular heart rhythm, edema, swelling of feet/ankles, lightheadedness, syncope, pre-syncope, dyspnea on exertion, orthopnea, leg pain with exertion or acrocyanosis Resp: Denies: dyspnea, productive cough, non-productive cough, wheezing, stridor, pain on inspiration, change in phlegm color, hemoptysis or chest congestion GI: Denies: abdominal pain, nausea, vomiting, hematemesis, coffee ground emesis, dysphagia, heartburn, diarrhea, constipation, bloating, GI cramping, change in bowel habits, pain on defecation, hematochezia or melena : Denies: flank pain, difficulty urinating, dysuria, urinary frequency, urinary urgency, urinary hesitancy, urinary dribbling, difficulty starting urination, change in urine stream, nocturia or hematuria Musc: Denies: neck pain, back pain, extremity pain, joint pain, joint swelling, joint redness, joint stiffness or limited range of motion Neuro: Denies: headache(s), numbness in extremities, weakness in extremities, sensory changes, lack of coordination, difficulty walking, frequent falls, dizziness, vertigo, confusion, Slurred speech present, difficulty communicating thoughts or seizure-like activity Psych: Denies: anxiety, depression, mood swings, panic attacks, hopelessness or irritability Endo: Denies: polyuria, polydipsia, tired all the time, cold intolerance, excessive sweating, flushing or heat intolerance Mamadou/Lymph: Denies: easy bruising or easy bleeding All/Imm: Denies: tongue swelling, facial swelling or acute wheezing Medications/Allergies Home Medications Medication Instructions Recorded Confirmed Last Taken Type metoprolol succinate 50 mg 50 mg PO DAILY #14 tabs 10/26/22 07/24/24 Unknown Rx tablet,extended release 24 hr loperamide 2 mg capsule 2 mg PO Q6H PRN Diarrhea 06/11/23 07/24/24 Unknown History (Anti-Diarrheal (loperamide)) bisacodyl 10 mg rectal suppository 10 mg PA DAILY 06/15/24 07/24/24 Unknown History tramadol 50 mg tablet 50 mg PO BID #60 tabs 07/17/24 07/24/24 Unknown Rx acetaminophen 325 mg tablet 650 mg PO Q6H PRN Pain 07/24/24 07/24/24 Unknown History (Tylenol) apixaban 5 mg tablet (Eliquis) 5 mg PO BID 07/24/24 07/24/24 Unknown History artificial tears with lanolin eye 1 applic ophthalmic (eye) Q8H 07/24/24 07/24/24 Unknown History ointment aspirin 81 mg tablet,delayed 81 mg PO DAILY 07/24/24 07/24/24 Unknown History release atorvastatin 40 mg tablet 40 mg PO QPM 07/24/24 07/24/24 Unknown History camphor-menthol 0.2 %-3.5 % 1 applic topical Q4H PRN Pain 07/24/24 07/24/24 Unknown History topical gel cefdinir 300 mg capsule 300 mg PO Q12H 07/24/24 07/24/24 Unknown History cholecalciferol (vitamin D3) 125 125 mcg PO DAILY 07/24/24 07/24/24 Unknown History mcg (5,000 unit) tablet (Vitamin D3) guaifenesin 200 mg/5 mL oral liquid 400 mg PO Q4H 07/24/24 07/24/24 Unknown History honey 80 % topical gel (MediHoney 1 applic topical DAILY 07/24/24 07/24/24 Unknown History (honey)) magnesium hydroxide 400 mg/5 mL 10 ml PO DAILY PRN Constipation 07/24/24 07/24/24 Unknown History oral suspension (Milk of Magnesia) methimazole 5 mg tablet 5 mg PO DAILY 07/24/24 07/24/24 Unknown History zinc oxide 1 applic topical QPM PRN apply to 07/24/24 07/24/24 Unknown History buttock nightly Allergies Allergy/AdvReac Type Severity Reaction Status Date / Time No Known Allergies Allergy Verified 04/07/24 22:21 PFSH Acute 2 PFSH: Medical History Fracture Both wrists with hardware Unsteadiness on feet Muscle weakness (generalized) Acute systolic (congestive) heart failure Unspecified dementia, mild, without behavioral disturbance, psychotic disturbance, mood disturbance, and anxiety Essential (primary) hypertension Permanent atrial fibrillation Tonic pupil, right eye Intermittent exophthalmos, 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 ischemic attack (TIA), and cerebral infarction without residual deficits Cardiomyopathy, unspecified Anisocoria Repeated falls Metabolic encephalopathy Rhabdomyolysis Syncope and collapse Traumatic arthropathy, left hip Generalized edema Difficulty in walking, not elsewhere classified Weakness Hypokalemia Vitamin D deficiency, unspecified Localized edema Atrial fibrillation Pacemaker with Defibulator Hypertension Surgical History History of appendectomy Presence of left artificial hip joint Social History Smoking and tobacco/nicotine status: unknown if used tobacco/nicotine Quit status (tobacco/nicotine): has quit using Year quit tobacco: age 17, smoked 2 years Alcohol intake: never Vitals/I&O/Wt Last Vital Signs Temp 98.9 F 07/24/24 12:26 Pulse 96 07/24/24 16:49 Resp 17 07/24/24 12:26 BP 110/51 07/24/24 16:49 Pulse Ox 96 07/24/24 16:49 O2 Del Method Room Air 07/24/24 15:31 Weight last 48 hrs Weight 69.853 kg Physical Exam 2 Narrative: General: No acute distress, AO x3, pallor present HEENT: PERRLA, pupils bilaterally equal and reactive Chest: Normal vesicular breath sounds, no added sounds, equal good air entry bilaterally CVS: S1-S2 regular, no murmurs, no tachycardia, no gallops, no rubs Abdomen: Soft, nontender, no organomegaly, bowel sounds present Neuro: No focal deficits, no facial deformity, AO x3, Extremity: Laying in antalgic position because of pain in the right hip, Lo in place Data 07/24/24 13:59 07/24/24 13:59 A&P Assessment and plan (1) Anemia: Baseline hemoglobin seems to be around 12 last month. Today 8. Patient denies any melena or hematemesis or hemoptysis. Check stool for occult blood. IV Protonix 40 mg twice daily. Check iron panel, vitamin B12, folate levels. Target hemoglobin more than 8. Will transfuse accordingly. CT of the hip with contrast to rule out any bleeding around fracture. (2) Intertrochanteric fracture of right hip: Orthopedic consulted. Took last Eliquis today morning. Plan for OR on 07/26. Monitor hemoglobin. Orthopedic team requesting CT hip. (3) Atrial fibrillation: Currently rate controlled. Continue home dose of metoprolol. Holding off on Eliquis as above. Check echocardiogram. Qualifiers: Atrial fibrillation type: longstanding persistent Qualified Code(s): I 48.11 - Longstanding persistent atrial fibrillation (4) Chronic anticoagulation: Chronically takes Eliquis 5 mg twice daily. (5) Hypertension: Goal blood pressure less than 140/90 mmHg. Continue with home dose of metoprolol. Will uptitrate as for goal blood pressure. Qualifiers: Hypertension type: essential hypertension Qualified Code(s): I10 - Essential (primary) hypertension (6) Chronic systolic (congestive) heart failure: Has a history of systolic heart failure. No echo in the system. Will check echocardiogram. Currently euvolemic. (7) Lo catheter in place: Chronic. Will confirm with jail when the Lo was changed last. If no change within last 1 month will replace. Check urinalysis. (8) retirement resident: Plan Hypothyroidism: Continue with home dose of methimazole. Check TSH. Decub ulcer: Continue with wound care. CODE STATUS: Discussed noted with the patient. Niece will be the DPOA. He does have a state appointed guardian as per the chart. Will confirm from jail. DNR/DNI Cardiac diet Protonix will be sufficient for PUD prophylaxis Heparin 5000 Q8 hourly for DVT prophylaxis Attestations 2 Medical Necessity Statement*: Admission for 2 midnights for management of intertrochanter fracture of right hip, anemia in a patient on anticoagulation for A-fib Diagnoses Anemia D64.9 Intertrochanteric fracture of right hip S72.141A Longstanding persistent atrial fibrillation I48.11 Atrial fibrillation type: longstanding persistent Chronic anticoagulation Z79.01 Essential hypertension I10 Hypertension type: essential hypertension Chronic systolic (congestive) heart failure I50.[address] Z97.8 retirement resident Z59.3
[2024-07-24 17:32] LABS: Procalcitonin 0.05 ng/mL (0-0.5)
[2024-07-24 18:14] LABS: Iron 26 ug/dL (59-158); Percent Saturation 15.3 % (20-50); Thyroid Stimulating Hormone 2.43 uIU/mL (0.27-4.20); Total Iron Binding Capacity 169 mcg/dl; Unsaturated Iron Binding 143 ug/dL (112-347); Vitamin B12 590 pg/mL (232-1245)
[2024-07-24] MEDS: pantoprazole 40 mg SDV IVP (20:29)
[2024-07-24] MEDS: iron sucrose 200 MG in sodium chloride 0.9% (100 ml) 100 ML 220 MG IV (20:29)
[2024-07-24] MEDS: atorvastatin 40 mg Tablet PO (20:29)
[2024-07-24] MEDS: iohexol 350 mg/mL 500 mL Btl (per mL) IV (20:59)
[2024-07-25] VITALS (15 sets, daily range): BP systolic 108–139; BP diastolic 55–82; PULSE 69–75; RESP 14–18; TEMP 36.4–37.1; O2SAT 93–97; BMI 23.0
[2024-07-25 02:52] LABS: Basophils % 0.6 %; Eosinophils # 0.1 10^3/uL (0.0-0.8); Eosinophils % 1.9 %; Lymphocytes # 1.2 10^3/uL (0.8-4.8); Lymphocytes % 19.3 %; Mean Corpuscular HGB Conc 32.5 g/dL (30-55); Mean Corpuscular Hemoglobin 30.5 pg (27-33); Mean Corpuscular Volume 93.8 fl (82-101); Mean Platelet Volume 8.4 fL (7.4-10.4); Monocytes # 0.6 10^3/uL (0.2-0.9); Monocytes % 10.3 %; Neutrophils # 4.21 10^3/uL (1.8-7.7); Neutrophils % 67.7 %; Nucleated Red Blood Cells % 0 %; Platelet Count 253 10^3/cmm (157-399); Red Blood Count 2.56 10^6/uL (3.85-5.65); White Blood Count 6.22 10^3/uL (3.29-11.43)
[2024-07-25 03:17] LABS: Alanine Aminotransferase 14 U/L (0-41); Albumin Level 2.6 g/dL (3.5-5.2); Alkaline Phosphatase 76 U/L (40-130); Anion Gap 12.1 (5-19); Aspartate Amino Transferase 23 U/L (0-40); Blood Urea Nitrogen 8 mg/dL (8-23); Calcium 8.3 mg/dL (8.5-10.5); Carbon Dioxide 26 mmol/L (22-29); Chloride 97 mmol/L (98-107); Creatinine Clr Calc Pharmacy 71.2729; Globulin 2.8 g/dL (1.3-4.6); Glucose 96 mg/dL (65-115); Magnesium 2.1 mg/dL (1.7-2.3); Osmolality Calculated 270 mOsm/kg (285-295); Phosphorus 3.1 mg/dL (2.5-4.5); Potassium 4.1 mmol/L (3.5-5.1); Procalcitonin 0.06 ng/mL (0-0.5); Sodium 131 mmol/L (136-145); Total Bilirubin 0.8 mg/dL (0.15-1.2); Total Protein 5.4 g/dL (6.6-8.7)
[2024-07-25 03:19] LABS: Chol HDL Ratio 2.63 mg/dL (1.0-5.00); Cholesterol 79 mg/dL (0-200); HDL Cholesterol 30 mg/dL (60-100); LDL Cholesterol Calculated 39 mg/dL (50-129); Triglycerides 52 mg/dL (0-150)
[2024-07-25 03:26] LABS: Estmated Average Glucose 100; Hemoglobin A1C 5.1 % (4.0-6.0)
[2024-07-25] MEDS: heparin 5,000 unit/mL INJ 1 mL 5000 UNIT SUBCUT ×2 (04:17→17:37)
[2024-07-25] MEDS: TRAMadol 50 mg Tablet PO ×2 (08:41→17:37)
[2024-07-25] MEDS: pantoprazole 40 mg SDV IVP ×2 (08:41→21:49)
[2024-07-25] MEDS: methIMAzole 5 MG Tablet PO (08:41)
[2024-07-25] MEDS: aspirin 81 mg EC Tablet PO (08:41)
[2024-07-25] MEDS: metoprolol succinate ER (24 HR) 50 mg Tablet PO (08:41)
[2024-07-25] MEDS: morphine 4 mg/mL SDV 1 mL 2 MG IVP ×2 (09:15→14:14)
[2024-07-25 10:31] LABS: Reticulocyte % 3.1 % (0.5-2.0)
[2024-07-25 10:49] LABS: Ferritin 253 ng/mL (30-400); Lactate Dehydrogenase 241 U/L (135-225)
--- NOTE | 2024-07-25 12:51 | P.DS_ITS ---
Discharge Providers 2 Date of Admission: 07/24/24 16:25 Date of Discharge: July 25, 2024 Attending Provider at Admission: Janeth Hills MD Attending Provider at Discharge: Darío Ordaz MD Primary Care Provider: Polo Wisdom DO Diagnoses at Discharge Discharge Diagnosis (1) Anemia: Status: Acute (2) Intertrochanteric fracture of right hip: Status: Acute (3) Atrial fibrillation: Status: Chronic Qualifiers: Atrial fibrillation type: longstanding persistent Qualified Code(s): I 48.11 - Longstanding persistent atrial fibrillation (4) Chronic anticoagulation: Status: Acute (5) Hypertension: Status: Acute Qualifiers: Hypertension type: essential hypertension Qualified Code(s): I10 - Essential (primary) hypertension (6) Chronic systolic (congestive) heart failure: Status: Chronic (7) Lo catheter in place: Status: Acute (8) senior care resident: Status: Chronic Reason for Visit 2 Reason for Visit: rt hip fx Physical Exam 2 Narrative: General: No acute distress, AO x3 HEENT: PERRLA, pupils bilaterally equal and reactive Chest: Normal vesicular breath sounds, no added sounds, equal good air entry bilaterally CVS: S1-S2 regular, no murmurs, no tachycardia, no gallops, no rubs Abdomen: Soft, nontender, no organomegaly, bowel sounds present Neuro: No focal deficits, no facial deformity, AO x3, power 5/5 in all limbs Skin: NARRATIVE SKIN EXAM: Urinary Catheter Management: Lo: Cath Placed During This Visit: yes Reason for Continuing Indwelling Catheter: Chronic Indwelling Urinary Catheter on Admission Urinary Catheter Date of Insertion: 07/24/24 Discharge Data Studies Completed and Pending Completed Studies During Hospitalization Category Date Time Status CT pelvis w con* [id number] Routine Cat Scan 07/24/24 17:02 Completed CXRP [XR chest 1V portable [id number]] Stat Exams 07/24/24 12:37 Completed XR femur RT min 2V* [id number] Stat Exams 07/24/24 13:09 Completed XR hip RT 2-3V wo/w pel* [id number] Stat Exams 07/24/24 12:37 Completed XR pelvis 1-2V* [id number] Stat Exams 07/24/24 13:09 Completed CV. echo complete* [id number] Routine Ultrasound 07/25/24 17:02 Completed Pending at discharge Category Date Time Status Complete Blood Count w/Auto AM LABS Lab 07/26/24 04:00 Ordered Comprehensive Metabolic Panel AM LABS Lab 07/26/24 04:00 Ordered Occult Blood Stool [Immunochemical Fecal OCB] Routine Lab 07/24/24 17:02 Uncollected Urinalysis Routine Lab 07/24/24 17:26 Ordered Radiology Impressions Chest X-Ray 07/24/24 12:37 IMPRESSION: 1. Marked cardiac enlargement with unusual heart shape. This may be due to rotation of the chest however other considerations would include pericardial effusion. 2. The lungs are clear and no acute infiltrates were noted. Hip/Pelvis X-Ray 07/24/24 12:37 IMPRESSION: 1. Chronic displaced subcapital fracture of the RIGHT hip. No new fracture identified. Femur X-Ray 07/24/24 13:09 IMPRESSION: 1. Chronically displaced subcapital fracture of the RIGHT femur. The femur is otherwise intact. Pelvis X-Ray 07/24/24 13:09 IMPRESSION: 1. No acute pelvic fracture. 2. Chronic hip findings as above. Pelvis CT 07/24/24 17:02 IMPRESSION: 1. Right femur subcapital hip fracture with 1 full shaft displacement. 2. Left hip arthroplasty changes. 3. Aortic atherosclerotic calcifications. 4. Constipation. 5. Diverticulosis without diverticulitis. 6. Anasarca. 7. Lo catheter in the urinary bladder. 8. Right inguinal canal fluid. Laboratory Results WBC 6.22 10^3/uL (3.29-11.43) 07/25/24 02:33 RBC 2.56 10^6/uL (3.85-5.65) L 07/25/24 02:33 Hgb 7.80 g/dL (11.27-16.99) L 07/25/24 02:33 Hct 24.0 % (37-53) L 07/25/24 02:33 MCV 93.8 fl (82-101) 07/25/24 02:33 MCH 30.5 pg (27-33) 07/25/24 02:33 MCHC 32.5 g/dL (30-55) 07/25/24 02:33 RDW 15.0 % (12.1-15.1) 07/25/24 02:33 Plt Count 253 10^3/cmm (157-399) 07/25/24 02:33 MPV 8.4 fL (7.4-10.4) 07/25/24 02:33 Neut % (Auto) 67.7 % 07/25/24 02:33 Lymph % (Auto) 19.3 % 07/25/24 02:33 [place] % (Auto) 10.3 % 07/25/24 02:33 Eos % (Auto) 1.9 % 07/25/24 02:33 Baso % (Auto) 0.6 % 07/25/24 02:33 Reticulocyte % (Auto) 3.1 % (0.5-2.0) H 07/25/24 02:33 Neut # (Auto) 4.21 10^3/uL (1.8-7.7) 07/25/24 02:33 Lymph # (Auto) 1.2 10^3/uL (0.8-4.8) 07/25/24 02:33 [place] # (Auto) 0.6 10^3/uL (0.2-0.9) 07/25/24 02:33 Eos # (Auto) 0.1 10^3/uL (0.0-0.8) 07/25/24 02:33 Baso # (Auto) 0.0 10^3/uL (0.0-0.1) 07/25/24 02:33 Nucleated RBC % (auto) 0 % 07/25/24 02:33 Nucleated RBCs # 0.0 /100WBC 07/25/24 02:33 Haptoglobin 248.0 mg/L (30-200) H 07/25/24 02:33 PT 22.00 SECONDS (12.1-14.9) H 07/24/24 13:59 INR 1.85 (0.8-1.2) H 07/24/24 13:59 Sodium 131 mmol/L (136-145) L 07/25/24 02:33 Potassium 4.1 mmol/L (3.5-5.1) 07/25/24 02:33 Chloride 97 mmol/L (98-107) L 07/25/24 02:33 Carbon Dioxide 26 mmol/L (22-29) 07/25/24 02:33 Anion Gap 12.1 (5-19) 07/25/24 02:33 BUN 8 mg/dL (8-23) 07/25/24 02:33 Creatinine 0.7 mg/dL (0.7-1.2) 07/25/24 02:33 GFR Calculation Not Reportable 07/25/24 02:33 Glucose 96 mg/dL (65-115) 07/25/24 02:33 Estimat Average Glucose 100 07/25/24 02:33 Hemoglobin A1c 5.1 % (4.0-6.0) 07/25/24 02:33 Calculated Osmolality 270 mOsm/kg (285-295) L 07/25/24 02:33 Calcium 8.3 mg/dL (8.5-10.5) L 07/25/24 02:33 Phosphorus 3.1 mg/dL (2.5-4.5) 07/25/24 02:33 Magnesium 2.1 mg/dL (1.7-2.3) 07/25/24 02:33 Iron 26 ug/dL (59-158) L 07/24/24 13:59 TIBC 169 mcg/dl 07/24/24 13:59 % Saturation 15.3 % (20-50) L 07/24/24 13:59 Unsat Iron Binding 143 ug/dL (112-347) 07/24/24 13:59 Ferritin 253 ng/mL (30-400) 07/25/24 02:33 Total Bilirubin 0.8 mg/dL (0.15-1.2) 07/25/24 02:33 AST 23 U/L (0-40) 07/25/24 02:33 ALT 14 U/L (0-41) 07/25/24 02:33 Alkaline Phosphatase 76 U/L (40-130) 07/25/24 02:33 Lactate Dehydrogenase 241 U/L (135-225) H 07/25/24 02:33 Total Protein 5.4 g/dL (6.6-8.7) L 07/25/24 02:33 Albumin 2.6 g/dL (3.5-5.2) L 07/25/24 02:33 Globulin 2.8 g/dL (1.3-4.6) 07/25/24 02:33 Triglycerides 52 mg/dL (0-150) 07/25/24 02:33 Cholesterol 79 mg/dL (0-200) 07/25/24 02:33 LDL Cholesterol, Calc 39 mg/dL (50-129) L 07/25/24 02:33 HDL Cholesterol 30 mg/dL (60-100) L 07/25/24 02:33 LDL/HDL Ratio 1.30 RATIO (0.00-3.22) 07/25/24 02:33 Cholesterol/HDL Ratio 2.63 mg/dL (1.0-5.00) 07/25/24 02:33 Vitamin B12 590 pg/mL (232-1245) 07/24/24 13:59 Folate 10.0 ng/mL (4.5-32.2) 07/25/24 02:33 Procalcitonin 0.06 ng/mL (0-0.5) 07/25/24 02:33 TSH 2.43 uIU/mL (0.27-4.20) 07/24/24 13:59 Blood Type O Positive 07/25/24 09:50 Rho(D) Type Rh positive 07/25/24 09:50 Antibody Screen Negative 07/25/24 09:50 Crossmatch See Detail 07/25/24 09:50 Vitals Last Vital Signs Temp 97.8 F 07/25/24 12:30 Pulse 70 07/25/24 12:30 Resp 14 07/25/24 12:30 BP 110/65 07/25/24 12:30 Pulse Ox 97 07/25/24 12:30 O2 Del Method Room Air 07/25/24 11:54 Discharge Plan Discharge Patient Disposition: Home Condition: Stable Prescriptions: No Action loperamide [Anti-Diarrheal (loperamide)] 2 mg capsule 2 mg PO Q6H PRN (Reason: Diarrhea) metoprolol succinate 50 mg tablet extended release 24 hr 50 mg PO DAILY Qty: 14 0RF tramadol 50 mg tablet 50 mg PO BID Qty: 60 5RF bisacodyl [Biscolax] 10 mg Suppository 10 mg MT DAILY atorvastatin 40 mg Tablet 40 mg PO QPM acetaminophen [Tylenol] 325 mg Tablet 650 mg PO Q6H PRN (Reason: Pain) aspirin [Aspir-81] 81 mg Tablet,Delayed Release (Dr/Ec) 81 mg PO DAILY magnesium hydroxide [Milk of Magnesia] 400 mg/5 mL Suspension 10 ml PO DAILY PRN (Reason: Constipation) methimazole 5 mg Tablet 5 mg PO DAILY cefdinir 300 mg Capsule 300 mg PO Q12H zinc oxide Ointment 1 applic TOPICAL QPM PRN (Reason: apply to buttock nightly) guaifenesin 200 mg/5 mL Liquid 400 mg PO Q4H Rx Instructions: take 10 ml b mouth every 4 hours as needed Artificial Tears Ointment 1 applic OPHTHALMIC (EYE) Q8H cholecalciferol (vitamin D3) [Vitamin D3] 125 mcg (5,000 unit) Tablet 125 mcg PO DAILY Biofreeze 0.2-3.5 % Gel 1 applic TOPICAL Q4H PRN (Reason: Pain) Rx Instructions: rub in gently and completely MediHoney (honey) 80 % Gel 1 applic TOPICAL DAILY Eliquis 5 mg Tablet 5 mg PO BID Referrals: Polo Wisdom DO [Primary Care Provider] - Patient Instructions: Opioid Safety, Acute Wound Care (DC), Post Anesthesia Care Coding Level of Care Code Acute Code for Chg Fwd Diagnoses Anemia D64.9 Intertrochanteric fracture of right hip S72.141A Longstanding persistent atrial fibrillation I48.11 Atrial fibrillation type: longstanding persistent Chronic anticoagulation Z79.01 Essential hypertension I10 Hypertension type: essential hypertension Chronic systolic (congestive) heart failure I50.[address] Z97.8 senior care resident Z59.3
--- NOTE | 2024-07-25 13:55 | P.PN_ITS ---
Subjective 2 Subjective: No acute events overnight. Patient has remained hemodynamically stable and afebrile. Today morning seen with family at bedside. Family has traveled down from [facility] to visit with the patient. He himself denies any nausea vomiting, headache. Found to have a decub ulcer with superficial bleeding. Vitals/I&O/Wt Last Vital Signs Temp 97.8 F 07/25/24 12:30 Pulse 70 07/25/24 12:30 Resp 14 07/25/24 12:30 BP 110/65 07/25/24 12:30 Pulse Ox 97 07/25/24 12:30 O2 Del Method Room Air 07/25/24 11:54 07/24/24 07/25/24 07/25/24 22:59 06:59 14:59 Intake Total 110 / 110 0 / 0 Output Total 750 / 750 Balance 110 / 110 -750 / -640 0 / 0 Weight last 48 hrs Weight 74.979 kg Weight 74.979 kg Weight 77.111 kg Weight 69.853 kg Physical Exam 2 Narrative: General: No acute distress, AO x3, pallor present, chronically sick appearing, elderly HEENT: PERRLA, pupils bilaterally equal and reactive Chest: Bilateral bronchial breath sounds all over lung gomes CVS: S1-S2 regular, no murmurs, no tachycardia, no gallops, no rubs Abdomen: Soft, nontender, no organomegaly, bowel sounds present Neuro: No focal deficits, no facial deformity, AO x3, power not assessed in lower limb because of hip pain Skin: OTHER: Urinary Catheter Management: Lo: Cath Placed During This Visit: yes Reason for Continuing Indwelling Catheter: Chronic Indwelling Urinary Catheter on Admission Urinary Catheter Date of Insertion: 07/24/24 Data 07/26/24 14:07 07/26/24 02:55 A&P Assessment and plan (1) Anemia: Baseline hemoglobin seems to be around 12 last month. Hemoglobin down to 7.8 today. No active bleeding. Patient denies any melena or hematemesis or hemoptysis. Check stool for occult blood. IV Protonix 40 mg twice daily. Appreciate iron panel, vitamin B12, folate levels. Continue with IV iron supplementation to finish a 5-day course of 1 g in total of IV iron. Check reticulocyte count, LDH, haptoglobin levels. Transfused unit of PRBC today as patient will be going to the OR in AM. Appreciate CT head. (2) Intertrochanteric fracture of right hip: Orthopedic consulted. Took last Eliquis today morning. Plan for OR on 07/26. Monitor hemoglobin. Physical therapy. (3) Atrial fibrillation: Currently rate controlled. Continue home dose of metoprolol. Holding off on Eliquis as above. Echocardiogram shows an EF 55%, abnormal septal motion consistent with conduction abnormality, moderate biatrial enlargement, mild to moderate MR, mild TR, moderate pulmonary hypertension with PASP of 65 mmHg. Qualifiers: Atrial fibrillation type: longstanding persistent Qualified Code(s): I 48.11 - Longstanding persistent atrial fibrillation (4) Chronic anticoagulation: Chronically takes Eliquis 5 mg twice daily. On hold for now. (5) Hypertension: Goal blood pressure less than 140/90 mmHg. Continue with home dose of metoprolol. Will uptitrate as for goal blood pressure. Qualifiers: Hypertension type: essential hypertension Qualified Code(s): I10 - Essential (primary) hypertension (6) Chronic systolic (congestive) heart failure: Has a history of systolic heart failure. No echo in the system. Will check echocardiogram. Currently euvolemic. (7) Lo catheter in place: Chronic. Appreciate urinalysis. (8) senior living resident: Plan Hypothyroidism: Continue with home dose of methimazole. Appreciate TSH. Decub ulcer: Appreciate wound care at [facility]. For now we will transition over to Hydrofera Blue. CODE STATUS: Discussed in detail with the patient. Niece at bedside. Patient has a state award appointed. DNR/DNI. Cardiac diet Protonix will be sufficient for PUD prophylaxis Heparin 5000 Q8 hourly for DVT prophylaxis Care discussed in detail with patient and patient's niece at bedside. It seems patient was transitioned over to hospice at the [facility]. Patient and family not sure of the reason. Will confirm with the [facility] and the hospice company once case management available. Attestations 2 Medical Necessity Statement*: Requested hospitalization for management of right intertrochanter hip fracture requiring ORIF, anemia in setting of chronic anticoagulation for A-fib Diagnoses Anemia D64.9 Intertrochanteric fracture of right hip S72.141A Longstanding persistent atrial fibrillation I48.11 Atrial fibrillation type: longstanding persistent Chronic anticoagulation Z79.01 Essential hypertension I10 Hypertension type: essential hypertension Chronic systolic (congestive) heart failure I50.[address] Z97.8 senior living resident Z59.3
[2024-07-25] MEDS: HYDROcodone-acetaminophen 5-325 mg Tablet 1 TAB PO (14:15)
--- NOTE | 2024-07-25 15:57 | PM.PN ---
Vitals/I&O/Wt Last Vital Signs Temp 97.8 F 07/25/24 15:09 Pulse 69 07/25/24 15:09 Resp 16 07/25/24 15:09 BP 128/74 07/25/24 15:09 Pulse Ox 96 07/25/24 15:09 O2 Del Method Room Air 07/25/24 11:54 07/25/24 07/25/24 07/25/24 06:59 14:59 22:59 Intake Total 0 / 0 250 / 250 Output Total 750 / 750 Balance -750 / -640 0 / 0 250 / 250 Weight last 48 hrs Weight 165 lb 4.8 oz Weight 165 lb 4.8 oz Weight 170 lb Weight 154 lb Physical Exam Urinary Catheter Management: Lo: Cath Placed During This Visit: yes Reason for Continuing Indwelling Catheter: Chronic Indwelling Urinary Catheter on Admission Urinary Catheter Date of Insertion: 07/24/24 Data 07/25/24 02:33 07/25/24 02:33 Coding Level of Care Code Acute Code for Chg Fwtrinity
--- NOTE | 2024-07-25 17:02 | USCV_ITS ---
Bakari Imtiaz Age: 88 Gender: M : 1935 Exam Date: 07/25/2024 07:35 Ordering Phys: Darío Ordaz MD Technologist: Shayan Adorno [place] [facility] [place]: afib BP: 108 / 55 HR: 69 Rhythm: Sinus Technical Quality: Adequate MEASUREMENTS (Male / Female) Normal Values 2D ECHO LV Diastolic Diameter PLAX 5.0 cm 4.2 - 5.9 / 3.9 - 5.3 cm IVS Diastolic Thickness 1.2 cm 0.6 - 1.0 / 0.6 - 0.9 cm IVS Systolic Thickness 1.5 cm LVPW Diastolic Thickness 1.2 cm 0.6 - 1.0 / 0.6 - 0.9 cm LVPW Systolic Thickness 2.1 cm LVOT Diameter 2.2 cm LV Ejection Fraction 2D Teich 64.8 % LV Ejection Fraction MOD 4C 63.9 % LV Ejection Fraction MOD 2C 57.4 % LV Ejection Fraction 2C AL 58.9 % LA Diameter 4.1 cm Aorta at Sinotubular Diameter 2.2 cm IVC Diameter 2.0 cm M-MODE LA Ao Ratio MM 1.3 AV Cusp Separation MM 2.2 cm DOPPLER AV Peak Velocity 138.0 cm/s LVOT Peak Velocity 86.0 cm/s AV Area Cont Eq vti 2.5 cm squared AV Area Cont Eq pk 2.3 cm squared MV Peak Velocity 106.0 cm/s MV Area PHT 4.1 cm squared Mitral E to A Ratio 2.1 TV Peak Velocity 350.7 cm/s TR Peak Velocity 399.5 cm/s TR Peak Gradient 63.8 mmHg TR Mean Velocity 294.0 cm/s TR Mean Gradient 39.2 mmHg TR Velocity Time Integral 93.0 cm PV Peak Velocity 97.3 cm/s RV Ejection Time 0.3 s FINDINGS Left Ventricle Moderate concentric left ventricular hypertrophy. LV ejection fraction around 57%abnormal septal motion consistent with conduction abnormality. Right Ventricle Possibly normal size and ejection fraction. Pacemaker wire is noted Right Atrium Moderately increased right atrial size. Pacemaker right eighth wire in the right atrium Left Atrium Moderately increased left atrial size. Mitral Valve Thickened mitral valve. Mild-moderate mitral valve regurgitation. Aortic Valve Thickened aortic valve. Trace aortic valve regurgitation. Tricuspid Valve Mild tricuspid valve regurgitation. Estimated pulmonary artery peak systolic pressure 65 mmHg Pulmonic Valve Mild pulmonary valve regurgitation. Pericardium Normal pericardium without effusion. Aorta Normal ascending aorta dimension. IVC Inferior vena cava not visualized. CONCLUSIONS Moderate concentric left ventricular hypertrophy. LV ejection fraction around 57%abnormal septal motion consistent with conduction abnormality. Moderate biatrial enlargementThickened mitral valve. Mild- moderate mitral valve regurgitation. Thickened aortic valve. Trace aortic valve regurgitation. Mild tricuspid valve regurgitation. Moderate pulmonary hypertension. Estimated pulmonary artery peak systolic pressure 65 mmHg. There is no pericardial effusion. Pacemaker wire in the right atrium/right ventricle There are no intracardiac masses. No similar previous studies are available for comparison Dr Jocelyn Sibley MD [facility] (Electronically Signed) Final Date: 25 July 2024 08:50 S
[2024-07-25] MEDS: atorvastatin 40 mg Tablet 20 MG PO (17:37)
[2024-07-25] MEDS: iron sucrose 200 MG in sodium chloride 0.9% (100 ml) 100 ML 220 MG IV (18:13)
[2024-07-26] VITALS (26 sets, daily range): BP systolic 74–136; BP diastolic 39–68; PULSE 69–91; RESP 14–18; TEMP 36.3–37; O2SAT 91–100
[2024-07-26 03:33] LABS: Basophils % 0.6 %; Eosinophils # 0.2 10^3/uL (0.0-0.8); Eosinophils % 2.6 %; Hematocrit 28.1 % (37-53); Lymphocytes # 1.6 10^3/uL (0.8-4.8); Lymphocytes % 25.4 %; Mean Corpuscular HGB Conc 31.7 g/dL (30-55); Mean Corpuscular Hemoglobin 29.6 pg (27-33); Mean Corpuscular Volume 93.4 fl (82-101); Mean Platelet Volume 8.5 fL (7.4-10.4); Monocytes # 0.7 10^3/uL (0.2-0.9); Monocytes % 11.7 %; Neutrophils % 59.4 %; Nucleated Red Blood Cells % 0 %; Platelet Count 254 10^3/cmm (157-399); Red Blood Count 3.01 10^6/uL (3.85-5.65); Red Cell Distribution Width 15.7 % (12.1-15.1); White Blood Count 6.23 10^3/uL (3.29-11.43)
[2024-07-26 03:54] LABS: Alanine Aminotransferase 12 U/L (0-41); Albumin Level 2.7 g/dL (3.5-5.2); Alkaline Phosphatase 77 U/L (40-130); Anion Gap 12.1 (5-19); Aspartate Amino Transferase 19 U/L (0-40); Blood Urea Nitrogen 9 mg/dL (8-23); Calcium 8.2 mg/dL (8.5-10.5); Carbon Dioxide 27 mmol/L (22-29); Chloride 101 mmol/L (98-107); Globulin 2.7 g/dL (1.3-4.6); Glucose 93 mg/dL (65-115); Osmolality Calculated 280 mOsm/kg (285-295); Potassium 4.1 mmol/L (3.5-5.1); Sodium 136 mmol/L (136-145); Total Bilirubin 1.3 mg/dL (0.15-1.2); Total Protein 5.4 g/dL (6.6-8.7)
[2024-07-26] MEDS: heparin 5,000 unit/mL INJ 1 mL 5000 UNIT SUBCUT ×2 (05:04→18:04)
[2024-07-26] MEDS: ketorolac 30 mg/mL INJ IVP (07:26)
[2024-07-26] MEDS: acetaminophen 1,000 MG/100 ML PIGGYBACK 400 MG IV (07:26)
--- NOTE | 2024-07-26 07:45 | W.PM.OPSUD ---
Surgery/Procedure H&P Update DATE OF PROCEDURE: July 26, 2024 DATE H&P PERFORMED: 07/24/24 H&P UPDATE INFORMATION: I have reviewed H&P completed within last 30 days, I have examined patient prior to procedure and No changes to prior documentation PREOP DIAGNOSIS: Right hip femoral neck fracture PRIMARY INDICATION FOR PROCEDURE: Right hip displaced femoral neck fracture PLANNED PROCEDURE: Operation Date: 07/26/24 08:00 Proposed Procedures p Hemiarthroplasty Hip(Right) - Jimmy Bean DO
[2024-07-26] MEDS: ceFAZolin 2,000 mg SDV 2000 MG IVP (08:00)
[2024-07-26] MEDS: tranexamic acid 1,000 MG/100 ML PREMIX 600 MG IV (08:10)
--- NOTE | 2024-07-26 08:39 | P.ANESASSM_ITS ---
Pre-Anesthetic Assessment Height/Weight: Height 1.8 m Weight 75.024 kg Temp Pulse Resp BP Pulse Ox O2 Del Method 98.3 F 70 18 124/54 93 Room Air 07/26/24 08:00 07/26/24 08:00 07/26/24 08:00 07/26/24 08:00 07/26/24 08:00 07/26/24 08:00 Preop Diagnosis: Right hip femoral neck fracture Operation Date: 07/26/24 08:00 Proposed Procedures p Hemiarthroplasty Hip(Right) - Jimmy Yellow Medicine, Familial anesthetic complications: None Was Beta Xi taken within 24 hours: Yes Was Clonidine taken within 24 hours: N/A Last intake: > 8 hrs Social No alcohol and No tobacco Exam alert, oriented x 3, clear to auscultation bilaterally and regular rate & rhythm Airway Mallampati: Class I Pulmonary Patient has occasional raspy cough, lungs clear to ausculation CV/HEM Atrial Fibrillation (pacemaker), Congestive Heart Failure and Hypertension Metabolic Thyroid Disease Anesthetic Plan ASA status: 3 Anesthesia: General Risk of > 500 ml blood loss (7ml/kg in children): No Medications/Allergies Home Medications Medication Instructions Recorded Confirmed Last Taken Type metoprolol succinate 50 mg 50 mg PO DAILY #14 tabs 10/26/22 07/24/24 Unknown Rx tablet,extended release 24 hr loperamide 2 mg capsule 2 mg PO Q6H PRN Diarrhea 06/11/23 07/24/24 Unknown History (Anti-Diarrheal (loperamide)) bisacodyl 10 mg rectal suppository 10 mg TX DAILY 06/15/24 07/24/24 Unknown History tramadol 50 mg tablet 50 mg PO BID #60 tabs 07/17/24 07/24/24 Unknown Rx acetaminophen 325 mg tablet 650 mg PO Q6H PRN Pain 07/24/24 07/24/24 Unknown History (Tylenol) apixaban 5 mg tablet (Eliquis) 5 mg PO BID 07/24/24 07/24/24 Unknown History artificial tears with lanolin eye 1 applic ophthalmic (eye) Q8H 07/24/24 07/24/24 Unknown History ointment aspirin 81 mg tablet,delayed 81 mg PO DAILY 07/24/24 07/24/24 Unknown History release atorvastatin 40 mg tablet 40 mg PO QPM 07/24/24 07/24/24 Unknown History camphor-menthol 0.2 %-3.5 % 1 applic topical Q4H PRN Pain 07/24/24 07/24/24 Unknown History topical gel cefdinir 300 mg capsule 300 mg PO Q12H 07/24/24 07/24/24 Unknown History cholecalciferol (vitamin D3) 125 125 mcg PO DAILY 07/24/24 07/24/24 Unknown History mcg (5,000 unit) tablet (Vitamin D3) guaifenesin 200 mg/5 mL oral liquid 400 mg PO Q4H 07/24/24 07/24/24 Unknown History honey 80 % topical gel (MediHoney 1 applic topical DAILY 07/24/24 07/24/24 Unknown History (honey)) magnesium hydroxide 400 mg/5 mL 10 ml PO DAILY PRN Constipation 07/24/24 07/24/24 Unknown History oral suspension (Milk of Magnesia) methimazole 5 mg tablet 5 mg PO DAILY 07/24/24 07/24/24 Unknown History zinc oxide 1 applic topical QPM PRN apply to 07/24/24 07/24/24 Unknown History buttock nightly Allergies Allergy/AdvReac Type Severity Reaction Status Date / Time No Known Allergies Allergy Verified 04/07/24 22:21 Current Medications Generic Name Dose Route Start Last Admin Trade Name Freq PRN Reason Stop Dose Admin Hydrocodone Bitart/Acetaminophen 1 tab 07/24/24 17:59 07/25/24 14:15 Hydrocodone-Acetaminophen 5-325 Mg Tablet PO 1 tab Q6H PRN Administration MODERATE PAIN Aspirin 81 mg 07/25/24 09:00 07/25/24 08:41 Aspirin 81 Mg Ec Tablet PO 81 mg DAILY PARAM Administration Atorvastatin Calcium 20 mg 07/25/24 18:00 07/25/24 17:37 Atorvastatin 40 Mg Tablet PO 20 mg QPM PARAM Administration Collagenase 1 applic 07/25/24 10:30 07/25/24 16:59 Collagenase Oint 30 Gm TOPICAL Not Given DAILY [facility] Heparin Sodium (Porcine) 5,000 unit 07/24/24 17:15 07/26/24 05:04 Heparin 5,000 Unit/Ml Inj 1 Ml SUBCUT 5,000 unit Q12H PARAM Administration Iron Sucrose 200 mg/ Sodium 110 mls @ 220 mls/hr 07/24/24 18:30 07/25/24 19:46 Chloride IV Infused Q24H PARAM Infusion Methimazole 5 mg 07/25/24 09:00 07/25/24 08:41 Methimazole 5 Mg Tablet PO 5 mg DAILY PARAM Administration Metoprolol Succinate 50 mg 07/25/24 09:00 07/25/24 08:41 Metoprolol Succinate Er (24 Hr) 50 Mg Tablet PO 50 mg DAILY PARAM Administration Pantoprazole Sodium 40 mg 07/24/24 17:30 07/25/24 21:49 Pantoprazole 40 Mg Sdv IVP 40 mg Q12H PARAM Administration Tramadol HCl 50 mg 07/24/24 18:00 07/25/24 17:37 Tramadol 50 Mg Tablet PO 50 mg BID PARAM Administration PFSH Anesthesia Medical History Fracture Both wrists with hardware Unsteadiness on feet Muscle weakness (generalized) Acute systolic (congestive) heart failure Unspecified dementia, mild, without behavioral disturbance, psychotic disturbance, mood disturbance, and anxiety Essential (primary) hypertension Permanent atrial fibrillation Tonic pupil, right eye Intermittent exophthalmos, right eye Atherosclerotic heart disease of [place] coronary artery without angina pectoris Personal history of transient ischemic attack (TIA), and cerebral infarction without residual deficits Cardiomyopathy, unspecified Anisocoria Repeated falls Metabolic encephalopathy Rhabdomyolysis Syncope and collapse Traumatic arthropathy, left hip Generalized edema Difficulty in walking, not elsewhere classified Weakness Hypokalemia Vitamin D deficiency, unspecified Localized edema Atrial fibrillation Pacemaker with Defibulator Hypertension Surgical History History of appendectomy Presence of left artificial hip joint Social History Smoking and tobacco/nicotine status: unknown if used tobacco/nicotine Quit status (tobacco/nicotine): has quit using Year quit tobacco: age 17, smoked 2 years Alcohol intake: never Data Anesthesia 07/26/24 02:55 07/26/24 02:55 Short CBC 07/24/24 07/25/24 07/26/24 Range/Units 13:59 02:33 02:55 WBC 6.60 6.22 6.23 (3.29-11.43) 10^3/uL Hgb 8.00 L 7.80 L 8.90 L (11.27-16.99) g/dL Hct 24.8 L 24.0 L 28.1 L (37-53) % MCV 93.9 93.8 93.4 (82-101) fl Plt Count 269 253 254 (157-399) 10^3/cmm Neut % (Auto) 63.0 67.7 59.4 % Neut # (Auto) 4.16 4.21 3.70 (1.8-7.7) 10^3/uL BMP 07/24/24 07/25/24 07/26/24 13:59 02:33 02:55 Sodium 130 L 131 L 136 Potassium 4.2 4.1 4.1 Chloride 94 L 97 L 101 Carbon Dioxide 28 26 27 BUN 9 8 9 Creatinine 0.7 0.7 0.9 Glucose 100 96 93 Calcium 8.6 8.3 L 8.2 L Liver Function 07/24/24 07/25/24 07/26/24 Range/Units 13:59 02:33 02:55 Total Bilirubin 0.8 0.8 1.3 H (0.15-1.2) mg/dL AST 26 23 19 (0-40) U/L ALT 14 14 12 (0-41) U/L Alkaline Phosphatase 77 76 77 (40-130) U/L Albumin 2.8 L 2.6 L 2.7 L (3.5-5.2) g/dL Blood Bank 07/25/24 09:50 Blood Type O Positive Rho(D) Type Rh positive Antibody Screen Negative Coags 07/24/24 13:59 PT 22.00 H INR 1.85 H Microbiology 07/26/24 05:20 Occult Blood (FIT) - Final Stool Cardiac Studies: 2 Echocardiogram 07/25/24
[2024-07-26] MEDS: VANCOMYCIN ADD-Vantage 1,000 MG VIAL 1000 MG XX (10:04)
--- NOTE | 2024-07-26 10:29 | W.PM.BPON ---
Date of Procedure: 07/26/2024 Surgeon: Jimmy Bean DO Warehouse Sorter(s): Anuj Bean PA-C Procedure(s) performed: Right hip hemiarthroplasty Findings of the procedure(s): Patient found to have a right hip femoral neck fracture underwent procedure as planned without issues or complications. Estimated blood loss: 100 mL Specimen(s) removed: Femoral head removed Post-operative diagnosis: Right hip femoral neck fracture
--- NOTE | 2024-07-26 10:31 | XRR_ITS ---
PROCEDURE INFORMATION: Exam: XR Right Hip Exam date and time: 07/26/2024 10:46 AM Age: 88 years old Clinical indication: Injury or trauma; Fall; Blunt trauma (contusions or hematomas); Right; Prior surgery; Surgery date: Post-operative (0-2 days); Surgery type: RT hip; Additional info: Post op monica, do in pacu TECHNIQUE: Imaging protocol: Radiologic exam of the right hip. Views: 1 view hip with pelvis when performed. COMPARISON: CT pelvis w con* [id number] 07/24/2024 8:54 PM FINDINGS: Bones/joints: A right hip prosthesis is well seated and well aligned. Intra-articular air is noted along with skin angel. Soft tissues: Unremarkable. XR/XR hip RT 2-3V wo/w pel* [id number] IMPRESSION: Intact postoperative hip prosthesis
--- NOTE | 2024-07-26 13:48 | PC.NURSE ---
Called the lab due to a stat CBC put in at [address] Ordaz. Lab has till not obtained the CBC. Lab stated they would watch for it. The vp of customer experience strategy are still drawing blood on the floor.
[2024-07-26] MEDS: chlorhexidine gluconate 0.12% Btl 473 mL 30 ML MUCOUS MEM ×3 (14:00→21:35)
[2024-07-26 14:21] LABS: Basophils % 0.3 %; Eosinophils % 0.4 %; Hematocrit 25.8 % (37-53); Lymphocytes # 1.1 10^3/uL (0.8-4.8); Lymphocytes % 11.6 %; Mean Corpuscular HGB Conc 31.4 g/dL (30-55); Mean Corpuscular Hemoglobin 29.3 pg (27-33); Mean Corpuscular Volume 93.5 fl (82-101); Mean Platelet Volume 8.3 fL (7.4-10.4); Monocytes # 0.6 10^3/uL (0.2-0.9); Monocytes % 6.4 %; Neutrophils # 7.45 10^3/uL (1.8-7.7); Nucleated Red Blood Cells % 0 %; Platelet Count 235 10^3/cmm (157-399); Red Blood Count 2.76 10^6/uL (3.85-5.65); Red Cell Distribution Width 15.9 % (12.1-15.1); White Blood Count 9.21 10^3/uL (3.29-11.43)
--- NOTE | 2024-07-26 14:24 | P.PN_ITS ---
Subjective 2 Subjective: No acute events overnight. Patient underwent ORIF today. Tolerated the procedure well. Had EBL of 100 cc. Seen postoperatively. Patient waking up after surgery. Vitals/I&O/Wt Last Vital Signs Temp 97.9 F 07/26/24 12:37 Pulse 76 07/26/24 12:37 Resp 16 07/26/24 12:37 BP 102/51 07/26/24 12:37 Pulse Ox 99 07/26/24 12:37 O2 Del Method Nasal Cannula 07/26/24 12:37 O2 Flow Rate 3 07/26/24 12:37 07/25/24 07/26/24 07/26/24 22:59 06:59 14:59 Intake Total 600 / 600 200 / 200 Output Total 1250 / 1250 250 / 250 Balance -650 / -650 -50 / -50 Weight last 48 hrs Weight 75.024 kg Weight 74.979 kg Weight 74.979 kg Weight 77.111 kg Physical Exam 2 Narrative: General: No acute distress, AO x3, pallor present, chronically sick appearing, elderly HEENT: PERRLA, pupils bilaterally equal and reactive Chest: Bilateral bronchial breath sounds all over lung gomes CVS: S1-S2 regular, no murmurs, no tachycardia, no gallops, no rubs Abdomen: Soft, nontender, no organomegaly, bowel sounds present Neuro: No focal deficits, no facial deformity, AO x3, power not assessed in lower limb because of hip pain Skin: OTHER: Urinary Catheter Management: Lo: Cath Placed During This Visit: yes Reason for Continuing Indwelling Catheter: Chronic Indwelling Urinary Catheter on Admission Urinary Catheter Date of Insertion: 07/24/24 Data 07/26/24 14:07 07/26/24 02:55 Micro: Microbiology 07/26/24 05:20 Occult Blood (FIT) - Final Stool A&P Assessment and plan (1) Anemia: Baseline hemoglobin seems to be around 12 last month. Post monitor blood transfusion. Hemoglobin has remained stable. Stool for occult blood positive. Appreciate iron panel, ferritin, haptoglobin, reticulocyte count. Continue to monitor hemoglobin. Continue Protonix 40 mg twice daily. If needed will add Carafate. (2) Intertrochanteric fracture of right hip: Postop day 0. Monitor hemoglobin. Given stool for occult blood positive for now we will hold off on Eliquis. Postoperative physical therapy, anticoagulation, perioperative antibiotic as per orthopedic team. (3) Atrial fibrillation: Currently rate controlled. Continue home dose of metoprolol. Holding off on Eliquis as above. Echocardiogram shows an EF 55%, abnormal septal motion consistent with conduction abnormality, moderate biatrial enlargement, mild to moderate MR, mild TR, moderate pulmonary hypertension with PASP of 65 mmHg. Qualifiers: Atrial fibrillation type: longstanding persistent Qualified Code(s): I 48.11 - Longstanding persistent atrial fibrillation (4) Chronic anticoagulation: Chronically takes Eliquis 5 mg twice daily. On hold for now. (5) Hypertension: Goal blood pressure less than 140/90 mmHg. Continue with home dose of metoprolol. Will uptitrate as for goal blood pressure. Qualifiers: Hypertension type: essential hypertension Qualified Code(s): I10 - Essential (primary) hypertension (6) Chronic systolic (congestive) heart failure: Has a history of systolic heart failure. No echo in the system. Will check echocardiogram. Currently euvolemic. (7) Lo catheter in place: Chronic. Appreciate urinalysis. (8) snf resident: (9) Positive occult stool blood test: Continue with Protonix twice daily. Will add Carafate ACHS. Continue monitor hemoglobin. If hemoglobin remains stable will plan to discharge on Protonix and Carafate for 4 weeks, holding off on Eliquis for 2 weeks. If hemoglobin trends down after restarting anticoagulation he would need a colonoscopy as an outpatient. Plan Hypothyroidism: Continue with home dose of methimazole. Appreciate TSH. Decub ulcer: Appreciate wound care at [facility]. For now we will transition over to Hydrofera Blue. Concerns for aspiration: Nursing concern for aspiration as patient coughs with meals. Speech evaluation. Change diet accordingly. CODE STATUS: Discussed in detail with the patient. Niece at bedside. Patient has a state award appointed. DNR/DNI. Cardiac diet, dysphagia level 4 as per speech evaluation Protonix will be sufficient for PUD prophylaxis Heparin 5000 Q8 hourly for DVT prophylaxis Care discussed in detail with patient and patient's niece at bedside. It seems patient was transitioned over to hospice at the [facility]. Patient and family not sure of the reason. Will confirm with the halfway and the hospice company once case management available. Attestations 2 Medical Necessity Statement*: Requires further hospitalization for postoperative care in a patient post-ORIF for acute on chronic intertrochanteric right hip fracture, anemia, A-fib on anticoagulation Diagnoses Anemia D64.9 Intertrochanteric fracture of right hip S72.141A Longstanding persistent atrial fibrillation I48.11 Atrial fibrillation type: longstanding persistent Chronic anticoagulation Z79.01 Essential hypertension I10 Hypertension type: essential hypertension Chronic systolic (congestive) heart failure I50.[address] Z97.8 snf resident Z59.3 Positive occult stool blood test R19.5
[2024-07-26] MEDS: ceFAZolin 2,000 MG in sodium chloride 0.9% (plus) 50 ML 100 MG IV (15:49)
[2024-07-26] MEDS: iron sucrose 200 MG in sodium chloride 0.9% (100 ml) 100 ML 220 MG IV (17:55)
[2024-07-26] MEDS: calcium carb-vit d 600mg/400unit 1 Tablet 1 EACH PO (18:03)
[2024-07-26] MEDS: atorvastatin 40 mg Tablet 20 MG PO (18:03)
[2024-07-26] MEDS: iron polysaccharide complex 150 mg Capsule PO (18:03)
[2024-07-26] MEDS: sennosides-docusate Tablet 2 TAB PO (18:03)
[2024-07-26] MEDS: mupirocin oint 22 gm 1 APPLIC NASAL (18:04)
[2024-07-26] MEDS: TRAMadol 50 mg Tablet PO (18:04)
[2024-07-26] MEDS: sucralfate 1 gm Tablet PO ×2 (18:04→21:34)
[2024-07-26] MEDS: pantoprazole 40 mg SDV IVP (21:34)
[2024-07-27] VITALS (12 sets, daily range): BP systolic 102–138; BP diastolic 49–73; PULSE 69–98; RESP 14–18; TEMP 36.7–37.1; O2SAT 94–96
[2024-07-27] MEDS: ceFAZolin 2,000 MG in sodium chloride 0.9% (plus) 50 ML 100 MG IV ×2 (00:34→08:26)
[2024-07-27] MEDS: sucralfate 1 gm Tablet PO ×3 (06:01→20:49)
[2024-07-27] MEDS: heparin 5,000 unit/mL INJ 1 mL 5000 UNIT SUBCUT ×2 (06:01→18:56)
[2024-07-27 06:03] LABS: Basophils % 0.4 %; Eosinophils # 0.1 10^3/uL (0.0-0.8); Hematocrit 23.4 % (37-53); Lymphocytes % 15.1 %; Mean Corpuscular HGB Conc 31.2 g/dL (30-55); Mean Corpuscular Hemoglobin 29.6 pg (27-33); Mean Corpuscular Volume 94.7 fl (82-101); Mean Platelet Volume 8.6 fL (7.4-10.4); Monocytes # 0.6 10^3/uL (0.2-0.9); Monocytes % 9.2 %; Neutrophils # 4.97 10^3/uL (1.8-7.7); Neutrophils % 73.9 %; Nucleated Red Blood Cells % 0 %; Platelet Count 228 10^3/cmm (157-399); Red Blood Count 2.47 10^6/uL (3.85-5.65); Red Cell Distribution Width 15.6 % (12.1-15.1); White Blood Count 6.74 10^3/uL (3.29-11.43)
[2024-07-27 06:23] LABS: Alanine Aminotransferase 8 U/L (0-41); Albumin Level 2.5 g/dL (3.5-5.2); Alkaline Phosphatase 63 U/L (40-130); Anion Gap 15.9 (5-19); Aspartate Amino Transferase 21 U/L (0-40); Blood Urea Nitrogen 14 mg/dL (8-23); Calcium 8.1 mg/dL (8.5-10.5); Carbon Dioxide 24 mmol/L (22-29); Chloride 101 mmol/L (98-107); Creatinine Clr Calc Pharmacy 64.5783; Globulin 2.5 g/dL (1.3-4.6); Glucose 124 mg/dL (65-115); Osmolality Calculated 286 mOsm/kg (285-295); Potassium 3.9 mmol/L (3.5-5.1); Sodium 137 mmol/L (136-145); Total Bilirubin 0.8 mg/dL (0.15-1.2)
[2024-07-27] MEDS: TRAMadol 50 mg Tablet PO ×2 (08:22→18:56)
[2024-07-27] MEDS: sennosides-docusate Tablet 2 TAB PO ×2 (08:24→18:55)
[2024-07-27] MEDS: aspirin 81 mg EC Tablet PO (08:24)
[2024-07-27] MEDS: multivitamin therapeutic Tablet 1 TAB PO (08:24)
[2024-07-27] MEDS: calcium carb-vit d 600mg/400unit 1 Tablet 1 EACH PO ×2 (08:24→18:56)
[2024-07-27] MEDS: metoprolol succinate ER (24 HR) 50 mg Tablet PO (08:24)
[2024-07-27] MEDS: iron polysaccharide complex 150 mg Capsule PO (08:24)
[2024-07-27] MEDS: mupirocin oint 22 gm 1 APPLIC NASAL ×2 (08:25→19:01)
[2024-07-27] MEDS: collagenase oint 30 gm 1 APPLIC TOPICAL (08:26)
[2024-07-27] MEDS: chlorhexidine gluconate 0.12% Btl 473 mL 30 ML MUCOUS MEM ×4 (08:26→21:02)
[2024-07-27] MEDS: methIMAzole 5 MG Tablet PO (08:28)
[2024-07-27] MEDS: pantoprazole 40 mg SDV IVP ×2 (08:40→20:48)
--- NOTE | 2024-07-27 09:00 | FL_ITS ---
WS: [id number] MODIFIED BARIUM SWALLOW HISTORY: Oropharyngeal dysphagia FLUOROSCOPY TIME: 3.1 # of spot films: 1 Modified barium swallow was performed by the speech pathologist. Fluoroscopy was provided with the pa tient in a lateral projection. Multiple food consistencies were provided. Patient swallowed all food consistencies without too much difficulty. Laryngeal penetration and sever al episodes of aspiration were noted with all of the liquid consistencies. No coughing was elicited. Mild delay in transit of food products at the level of the vallecula. Patient swallowed the barium ta blet without difficulty. FL/FL barium swallow modifd [id number] IMPRESSION: 1. Silent episodes of the pharyngeal aspiration with all liquid consistencies along with penetration. 2. Barium tablet swallowed without difficulty. Please see speech therapist report also for recommendations.
[2024-07-27] MEDS: cyclobenzaprine 10 mg Tablet 5 MG PO (10:46)
--- NOTE | 2024-07-27 12:20 | PM.PN ---
Subjective Subjective: No acute vents overnight. Patient has remained hemodynamically stable and afebrile. Patient rhythm on examination more awake and alert. Complaining of pain in his leg and hip. Vitals/I&O/Wt Last Vital Signs Temp 98.2 F 07/27/24 12:02 Pulse 71 07/27/24 12:02 Resp 18 07/27/24 12:02 BP 110/51 07/27/24 12:02 Pulse Ox 95 07/27/24 12:02 O2 Del Method Room Air 07/27/24 04:00 O2 Flow Rate 2.5 07/26/24 14:35 07/26/24 07/27/24 07/27/24 22:59 06:59 14:59 Intake Total 520 / 720 50 / 770 0 / 0 Output Total 300 / 550 200 / 750 Balance 220 / 170 -150 / 20 0 / 0 Weight last 48 hrs Weight 80.785 kg Weight 75.024 kg Physical Exam Narrative: General: No acute distress, AO x3, pallor present, chronically sick appearing, elderly HEENT: PERRLA, pupils bilaterally equal and reactive Chest: Bilateral bronchial breath sounds all over lung gomes CVS: S1-S2 regular, no murmurs, no tachycardia, no gallops, no rubs Abdomen: Soft, nontender, no organomegaly, bowel sounds present Neuro: No focal deficits, no facial deformity, AO x3, power not assessed in lower limb because of hip pain Skin: OTHER: Urinary Catheter Management: Lo: Cath Placed During This Visit: yes Reason for Continuing Indwelling Catheter: Chronic Indwelling Urinary Catheter on Admission Urinary Catheter Date of Insertion: 07/24/24 Data 07/27/24 05:10 07/27/24 05:10 A&P Assessment and plan (1) Anemia: Baseline hemoglobin seems to be around 12 last month. Post monitor blood transfusion. Hemoglobin has remained stable. Stool for occult blood positive. Appreciate iron panel, ferritin, haptoglobin, reticulocyte count. Continue to monitor hemoglobin. Continue Protonix 40 mg twice daily. If needed will add Carafate. (2) Intertrochanteric fracture of right hip: Postop day 0. Monitor hemoglobin. Given stool for occult blood positive for now we will hold off on Eliquis. Postoperative physical therapy, anticoagulation, perioperative antibiotic as per orthopedic team. (3) Atrial fibrillation: Currently rate controlled. Continue home dose of metoprolol. Holding off on Eliquis as above. Echocardiogram shows an EF 55%, abnormal septal motion consistent with conduction abnormality, moderate biatrial enlargement, mild to moderate MR, mild TR, moderate pulmonary hypertension with PASP of 65 mmHg. Qualifiers: Atrial fibrillation type: longstanding persistent Qualified Code(s): I48.11 - Longstanding persistent atrial fibrillation (4) Chronic anticoagulation: Chronically takes Eliquis 5 mg twice daily. On hold for now. (5) Hypertension: Goal blood pressure less than 140/90 mmHg. Continue with home dose of metoprolol. Will uptitrate as for goal blood pressure. Qualifiers: Hypertension type: essential hypertension Qualified Code(s): I10 - Essential (primary) hypertension (6) Chronic systolic (congestive) heart failure: Has a history of systolic heart failure. No echo in the system. Will check echocardiogram. Currently euvolemic. (7) Lo catheter in place: Chronic. Appreciate urinalysis. (8) half-way resident: (9) Positive occult stool blood test: Continue with Protonix twice daily. Will add Carafate ACHS. Continue monitor hemoglobin. If hemoglobin remains stable will plan to discharge on Protonix and Carafate for 4 weeks, holding off on Eliquis for 2 weeks. If hemoglobin trends down after restarting anticoagulation he would need a colonoscopy as an outpatient. Plan Hypothyroidism: Continue with home dose of methimazole. Appreciate TSH. Decub ulcer: [facility] at [facility]. For now we will transition over to Hydrofera Blue. Concerns for aspiration: Appreciate speech evaluation. Modified barium swallow study today. Continue dysphagia level 4 diet for now. Advance as per speech evaluation. CODE STATUS: Discussed in detail with the patient. Niece at bedside. Patient has a state award appointed. DNR/DNI. Cardiac diet, dysphagia level 4 as per speech evaluation Protonix will be sufficient for PUD prophylaxis Heparin 5000 Q8 hourly for DVT prophylaxis Plan for the day: Hemoglobin had remained stable preoperatively. Postoperatively today 7.3. Most likely in setting of postoperative anemia. Will transfuse monitor PRBC and continue to monitor. Continue with Protonix 40 mg twice daily, Carafate ACHS. Stool for occult blood positive. If hemoglobin continues to trend down most likely will have to consult surgery for a possible colonoscopy. Hold off on Eliquis for now. Most likely will plan to hold off on Eliquis on discharge for next couple of weeks. Continue with IV iron supplementation. Plan for modified barium swallow study today. Advance diet any further accordingly. Change pain medication to oxycodone IR 5 mg every 6 hours as needed. Add Flexeril 5 mg 3 times daily as needed. Physical therapy. Care discussed in detail with patient and patient's niece at bedside. It seems patient was [facility] the [facility]. Patient and family not sure of the reason. Will confirm with the [facility] and the hospice company once case management available. Attestations Medical Necessity Statement*: Requires further hospitalization for management of postoperative care, post-ORIF, anemia, positive stool for occult blood with concerns for acute worsening in setting of postoperative anemia while safe discharge planning is sought. Diagnoses Anemia D64.9 Intertrochanteric fracture of right hip S72.141A Longstanding persistent atrial fibrillation I48.11 Atrial fibrillation type: longstanding persistent Chronic anticoagulation Z79.01 Essential hypertension I10 Hypertension type: essential hypertension Chronic systolic (congestive) heart failure I50.[address] Z97.8 half-way resident Z59.3 Positive occult stool blood test R19.5
--- NOTE | 2024-07-27 15:10 | P.PN_ITS ---
Subjective 2 Subjective: Patient seen and examined with niece and her daughter at bedside. Patient's awake alert responsive pain controlled with medications. Vitals/I&O/Wt Last Vital Signs Temp 98.1 F 07/29/24 04:00 Pulse 70 07/29/24 06:00 Resp 17 07/29/24 04:00 BP 114/65 07/29/24 04:00 Pulse Ox 95 07/29/24 04:00 O2 Del Method Room Air 07/29/24 04:00 O2 Flow Rate 2.5 07/26/24 14:35 07/28/24 07/29/24 07/29/24 22:59 06:59 14:59 Intake Total 110 / 110 50 / 160 Output Total 350 / 350 150 / 500 Balance -240 / -240 -100 / -340 Weight last 48 hrs Weight 174 lb 8 oz Weight 178 lb 1.6 oz Physical Exam 2 Narrative: Right hip examination: Dressings on in place that is clean dry and intact normal postoperative swelling ecchymosis no signs of infection. Patient's compartments are soft and compressible. Patient is able to wiggle the toes as well as plantarflex and dorsiflex ankle sensations intact light touch distally. Distal pulses are palpable. Able to tolerate logroll examination. Urinary Catheter Management: Lo: Cath Placed During This Visit: yes, but has since been removed by the nurse Reason for Continuing Indwelling Catheter: Chronic Indwelling Urinary Catheter on Admission Urinary Catheter Date of Insertion: 07/28/24 Urinary Catheter Time of Insertion: 11:37 Date Urinary Catheter Removed: 07/27/24 Time Urinary Catheter Discontinued: 15:05 Data 07/29/24 04:59 07/29/24 04:59 Other Labs: 07/27/24 AM labs? hemoglobin 7.3 Xray Ortho: Radiologist's impression: Ordering Provider/Ordering MD: Jimmy Bean Date of Service: 07/26/24 Procedure(s): XR hip RT 2-3V wo/w pel* [id number] Accession Number(s): [id number] Report Number: [id number] PROCEDURE INFORMATION: Exam: XR Right Hip Exam date and time: 07/26/2024 10:46 AM Age: 88 years old Clinical indication: Injury or trauma; Fall; Blunt trauma (contusions or hematomas); Right; Prior surgery; Surgery date: Post-operative (0-2 days); Surgery type: RT hip; Additional info: Post op monica, do in pacu TECHNIQUE: Imaging protocol: Radiologic exam of the right hip. Views: 1 view hip with pelvis when performed. COMPARISON: CT pelvis w con* [id number] 07/24/2024 8:54 PM FINDINGS: Bones/joints: A right hip prosthesis is well seated and well aligned. Intra-articular air is noted along with skin angel. Soft tissues: Unremarkable. XR/XR hip RT 2-3V wo/w pel* [id number] IMPRESSION: Intact postoperative hip prosthesis A&P Assessment and plan (1) Status post hemiarthroplasty of right hip: (2) Displaced fracture of right femoral neck: Plan Weight-bear as tolerated right lower extremity Posterior hip precautions PT/OT Pain control DVT prophylaxis per primary currently on hold due to postoperative anemia AM labs reviewed-1 unit PRBC today hemoglobin 7.3 this morning Change dressing as needed Hospitalist on board as primary social services designee discharge planning likely return to rehab facility Patient's niece and her daughter were accompanying him at bedside they understand and agree with current plan. All questions answered. Attestations 2 Medical Necessity Statement*: Ongoing care status post right hip hemiarthroplasty Coding Level of Care Code Acute Code for Chg Fwd Diagnoses Status post hemiarthroplasty of right hip Z96.641 Displaced fracture of right femoral neck S72.001A Time Spent (min) 15
--- NOTE | 2024-07-27 15:10 | PC.SOCIAL ---
IMM Updated. Updated pt & pt's niece on IMM. No questions voiced. Provided pt a copy. Initialed, dated, & timed a copy & placed in chart.
[2024-07-27] MEDS: sodium chloride 0.9% (100 ml) 100 ML 125 ML (18:55)
[2024-07-27] MEDS: atorvastatin 40 mg Tablet 20 MG PO (18:56)
[2024-07-27] MEDS: iron sucrose 200 MG in sodium chloride 0.9% (100 ml) 100 ML 220 MG IV (20:12)
--- NOTE | 2024-07-27 20:50 | PC.NURSE ---
Patient has talked about making bread while twisiting covers and has made several comments or sentences that really has not made much sense today. Lo catheter was pulled at 1505 today. Passed to evening nurse to make sure patient voids by nine pm. Patient has not taken in much fluid or food today. May need protein shakes added to meals.
[2024-07-27 21:23] LABS: Basophils % 0.3 %; Eosinophils # 0.2 10^3/uL (0.0-0.8); Eosinophils % 1.8 %; Hematocrit 25.5 % (37-53); Lymphocytes # 1.3 10^3/uL (0.8-4.8); Lymphocytes % 13.9 %; Mean Corpuscular HGB Conc 32.2 g/dL (30-55); Mean Corpuscular Hemoglobin 29.7 pg (27-33); Mean Corpuscular Volume 92.4 fl (82-101); Mean Platelet Volume 8.5 fL (7.4-10.4); Monocytes # 0.9 10^3/uL (0.2-0.9); Monocytes % 10.3 %; Neutrophils # 6.57 10^3/uL (1.8-7.7); Neutrophils % 73.3 %; Nucleated Red Blood Cells % 0 %; Platelet Count 221 10^3/cmm (157-399); Red Blood Count 2.76 10^6/uL (3.85-5.65); Red Cell Distribution Width 15.9 % (12.1-15.1); White Blood Count 8.97 10^3/uL (3.29-11.43)
[2024-07-28] VITALS (11 sets, daily range): BP systolic 95–120; BP diastolic 54–62; PULSE 69–71; RESP 15–17; TEMP 36.8–38.3; O2SAT 93–95
[2024-07-28] MEDS: heparin 5,000 unit/mL INJ 1 mL 5000 UNIT SUBCUT ×2 (05:59→17:19)
[2024-07-28 06:00] LABS: Basophils % 0.3 %; Eosinophils # 0.2 10^3/uL (0.0-0.8); Eosinophils % 3.1 %; Hematocrit 24.8 % (37-53); Lymphocytes # 1.2 10^3/uL (0.8-4.8); Lymphocytes % 15.6 %; Mean Corpuscular HGB Conc 32.7 g/dL (30-55); Mean Corpuscular Hemoglobin 29.8 pg (27-33); Mean Corpuscular Volume 91.2 fl (82-101); Mean Platelet Volume 8.6 fL (7.4-10.4); Monocytes # 0.9 10^3/uL (0.2-0.9); Monocytes % 10.9 %; Neutrophils # 5.47 10^3/uL (1.8-7.7); Neutrophils % 69.6 %; Nucleated Red Blood Cells % 0 %; Platelet Count 213 10^3/cmm (157-399); Red Blood Count 2.72 10^6/uL (3.85-5.65); Red Cell Distribution Width 15.9 % (12.1-15.1); White Blood Count 7.86 10^3/uL (3.29-11.43)
[2024-07-28] MEDS: sucralfate 1 gm Tablet PO ×4 (06:00→21:19)
--- NOTE | 2024-07-28 06:06 | PC.NURSE ---
Patients ho was removed 07/27/24 at approx 1500. Patient has not had any out put this shift. This nurse bladder scanned patient at 0600. Bladder scan showed 245 ml. This nurse contacted Dr. Demarco at 0605, Dr asked for patient to be bladder scanned again in 6 hours. This nurse will pass this information on to on coming shift.
[2024-07-28 06:28] LABS: Alanine Aminotransferase < 5 U/L (0-41); Albumin Level 2.5 g/dL (3.5-5.2); Alkaline Phosphatase 68 U/L (40-130); Anion Gap 11.6 (5-19); Aspartate Amino Transferase 21 U/L (0-40); Blood Urea Nitrogen 13 mg/dL (8-23); Carbon Dioxide 25 mmol/L (22-29); Chloride 103 mmol/L (98-107); Creatinine Clr Calc Pharmacy 64.5783; Globulin 2.6 g/dL (1.3-4.6); Glucose 121 mg/dL (65-115); Osmolality Calculated 283 mOsm/kg (285-295); Potassium 3.6 mmol/L (3.5-5.1); Sodium 136 mmol/L (136-145); Total Bilirubin 1.1 mg/dL (0.15-1.2); Total Protein 5.1 g/dL (6.6-8.7)
[2024-07-28] MEDS: oxyCODONE 5 mg IR Tab/Cap PO (08:09)
[2024-07-28] MEDS: multivitamin therapeutic Tablet 1 TAB PO (08:10)
[2024-07-28] MEDS: sennosides-docusate Tablet 2 TAB PO ×2 (08:10→17:18)
[2024-07-28] MEDS: aspirin 81 mg EC Tablet PO (08:10)
[2024-07-28] MEDS: TRAMadol 50 mg Tablet PO ×2 (08:10→17:18)
[2024-07-28] MEDS: calcium carb-vit d 600mg/400unit 1 Tablet 1 EACH PO ×2 (08:10→17:18)
[2024-07-28] MEDS: methIMAzole 5 MG Tablet PO (08:10)
[2024-07-28] MEDS: metoprolol succinate ER (24 HR) 50 mg Tablet PO (08:10)
[2024-07-28] MEDS: pantoprazole 40 mg SDV IVP ×2 (08:11→21:19)
[2024-07-28] MEDS: mupirocin oint 22 gm 1 APPLIC NASAL (08:16)
[2024-07-28] MEDS: chlorhexidine gluconate 0.12% Btl 473 mL 30 ML MUCOUS MEM ×2 (08:16→21:19)
[2024-07-28] MEDS: collagenase oint 30 gm 1 APPLIC TOPICAL (11:14)
[2024-07-28 11:43] LABS: Bilirubin Urine 1+ (Negative); Blood Urine Trace (Negative); Glucose Urine UA Negative (Normal); Ketones Urine Trace (Negative); Leukocyte Esterase Urine 1+ (Negative); Nitrate Urine Positive (Negative); Protein Urine 1+ (Negative); Specific Gravity, Urine 1.027 (1.005-1.030); Urine Appearance Cloudy (CLEAR)
[2024-07-28 11:46] LABS: Add Urine Microscopic? YES; Bacteria Urine None Seen /hpf; Hyaline Casts Urine 9.91 /lpf; Squamous Epithelial Cell Urine 0-5 /hpf (0-5); WBC Urine 21-50 /hpf (0-5)
[2024-07-28 12:24] LABS: Urine Color Orange (Yellow)
[2024-07-28 12:25] LABS: UA Slide Review UA Slide Review Perf
[2024-07-28 12:27] LABS: Add Urine Culture? Yes
[2024-07-28] MEDS: cefTRIAXone 1,000 mg SDV 1000 MG IVP (12:58)
--- NOTE | 2024-07-28 14:22 | P.PN_ITS ---
Subjective 2 Subjective: No acute events overnight. Patient seen laying comfortably in bed. Tried to walk with physical therapy. Plan was to discharge today but he had a fever of 100.9 Fahrenheit hence discharge was withheld. Patient himself denies any new complaints, nausea or vomiting, headache. Remains on room air. Vitals/I&O/Wt Last Vital Signs Temp 100.9 F H 07/28/24 11:31 Pulse 70 07/28/24 14:00 Resp 16 07/28/24 08:09 BP 102/59 07/28/24 11:31 Pulse Ox 94 07/28/24 11:31 O2 Del Method Room Air 07/28/24 11:31 O2 Flow Rate 2.5 07/26/24 14:35 07/27/24 07/28/24 07/28/24 22:59 06:59 14:59 Intake Total 260 / 610 Balance 260 / 610 Weight last 48 hrs Weight 80.785 kg Weight 80.785 kg Physical Exam 2 Narrative: General: No acute distress, AO x3, pallor present, chronically sick appearing, elderly HEENT: PERRLA, pupils bilaterally equal and reactive Chest: Bilateral bronchial breath sounds all over lung gomes CVS: S1-S2 regular, no murmurs, no tachycardia, no gallops, no rubs Abdomen: Soft, nontender, no organomegaly, bowel sounds present Neuro: No focal deficits, no facial deformity, AO x3, power not assessed in lower limb because of hip pain Skin: OTHER: Urinary Catheter Management: Lo: Cath Placed During This Visit: yes, but has since been removed by the nurse Reason for Continuing Indwelling Catheter: Chronic Indwelling Urinary Catheter on Admission Urinary Catheter Date of Insertion: 07/28/24 Urinary Catheter Time of Insertion: 11:37 Date Urinary Catheter Removed: 07/27/24 Time Urinary Catheter Discontinued: 15:05 Data 07/28/24 04:55 07/28/24 04:55 A&P Assessment and plan (1) Anemia: Baseline hemoglobin seems to be around 12 last month. Post monitor blood transfusion. Hemoglobin has remained stable. Stool for occult blood positive. Appreciate iron panel, ferritin, haptoglobin, reticulocyte count. Continue to monitor hemoglobin. Continue Protonix 40 mg twice daily. If needed will add Carafate. (2) Intertrochanteric fracture of right hip: Postop day 0. Monitor hemoglobin. Given stool for occult blood positive for now we will hold off on Eliquis. Postoperative physical therapy, anticoagulation, perioperative antibiotic as per orthopedic team. (3) Atrial fibrillation: Currently rate controlled. Continue home dose of metoprolol. Holding off on Eliquis as above. Echocardiogram shows an EF 55%, abnormal septal motion consistent with conduction abnormality, moderate biatrial enlargement, mild to moderate MR, mild TR, moderate pulmonary hypertension with PASP of 65 mmHg. Qualifiers: Atrial fibrillation type: longstanding persistent Qualified Code(s): I 48.11 - Longstanding persistent atrial fibrillation (4) Chronic anticoagulation: Chronically takes Eliquis 5 mg twice daily. On hold for now. (5) Hypertension: Goal blood pressure less than 140/90 mmHg. Continue with home dose of metoprolol. Will uptitrate as for goal blood pressure. Qualifiers: Hypertension type: essential hypertension Qualified Code(s): I10 - Essential (primary) hypertension (6) Chronic systolic (congestive) heart failure: Has a history of systolic heart failure. No echo in the system. Will check echocardiogram. Currently euvolemic. (7) Lo catheter in place: Chronic. Appreciate urinalysis. (8) snf resident: (9) Positive occult stool blood test: Continue with Protonix twice daily. Will add Carafate ACHS. Continue monitor hemoglobin. If hemoglobin remains stable will plan to discharge on Protonix and Carafate for 4 weeks, holding off on Eliquis for 2 weeks. If hemoglobin trends down after restarting anticoagulation he would need a colonoscopy as an outpatient. Plan Hypothyroidism: Continue with home dose of methimazole. Appreciate TSH. Decub ulcer: [facility]rec[facility] care at [facility]. For now we will transition over to Hydrofera Blue. Concerns for aspiration: Appreciate speech evaluation. Modified barium swallow study today. Continue dysphagia level 4 diet for now. Advance as per speech evaluation. CODE STATUS: Discussed in detail with the patient. Niece at bedside. Patient has a state award appointed. DNR/DNI. Cardiac diet, dysphagia level 4 as per speech evaluation Protonix will be sufficient for PUD prophylaxis Heparin 5000 Q8 hourly for DVT prophylaxis Plan for the day: Hemoglobin stable. Overall post 2 units of PRBC. Monitor hemoglobin daily. No active bleeding. Continue with Protonix twice daily, Carafate ACHS. Stool for occult blood positive. Holding off on Eliquis. Episode of fever of 100.9 Fahrenheit. Could be in setting of atelectasis. No leukocytosis. Check urinalysis, MRSA swab, respiratory viral panel. Empirically start patient on IV ceftriaxone. Follow-up urine culture. If remains afebrile for next 24 hours will plan to discharge back to SNF. Care discussed in detail with patient and patient's niece at bedside. It seems patient was transitioned over [facility] the [facility]. Patient and family not sure of the reason. Will confirm with the retirement and the hospice company once case management available. Attestations 2 Medical Necessity Statement*: Requires further hospitalization for management of postoperative care, post- ORIF, postoperative fever while further etiologies are ruled out Diagnoses Anemia D64.9 Intertrochanteric fracture of right hip S72.141A Longstanding persistent atrial fibrillation I48.11 Atrial fibrillation type: longstanding persistent Chronic anticoagulation Z79.01 Essential hypertension I10 Hypertension type: essential hypertension Chronic systolic (congestive) heart failure I50.[address] Z97.8 snf resident Z59.3 Positive occult stool blood test R19.5
[2024-07-28 14:44] LABS: MRSA PCR OZH (swab) MRSA Detected (Negative)
--- NOTE | 2024-07-28 15:12 | PC.OT ---
OT TREATMENT INITIALLY HELD DUE TO SCHEDULED D/C. HOWEVER, HAS A TEMPERATURE. HOLD TREATMENT DUE TO TEMPERATURE.
[2024-07-28 15:26] LABS: Adenovirus Not Detected (NOT DETECT); Chlamydia Pneumoniae Not Detected (NOT DETECT); Coronavirus 229E,HKU1,NL63,OC4 Not Detected (NOT DETECT); Human Metapneumovirus Not Detected (NOT DETECT); Human Rhinovirus/Enterovirus Not Detected (NOT DETECT); Influenza A Not Detected (NOT DETECT); Influenza A H1 Not Detected (NOT DETECT); Influenza A H1-2009 Not Detected (NOT DETECT); Influenza A H3 Not Detected (NOT DETECT); Influenza B Not Detected (NOT DETECT); Mycoplasma Pneumoniae Not Detected (NOT DETECT); Parainfluenza Virus Type 1 Not Detected (NOT DETECT); Parainfluenza Virus Type 2 Not Detected (NOT DETECT); Parainfluenza Virus Type 3 Not Detected (NOT DETECT); Parainfluenza Virus Type 4 Not Detected (NOT DETECT); Respiratory Syncytial Virus A Not Detected (NOT DETECT); Respiratory Syncytial Virus B Not Detected (NOT DETECT); SARS-COV-2 Not Detected (NOT DETECT)
--- NOTE | 2024-07-28 16:44 | P.PN_ITS ---
Subjective 2 Subjective: Patient was seen and examined this afternoon. Patient is doing well. Pain controlled medications. Patient was setting up to return to rehab facility today but did have a low-grade 100.9 fever and being worked up by the primary team. At this point in time the dressings clean dry and intact. Vitals/I&O/Wt Last Vital Signs Temp 100.9 F H 07/28/24 11:31 Pulse 70 07/28/24 14:00 Resp 16 07/28/24 08:09 BP 102/59 07/28/24 11:31 Pulse Ox 94 07/28/24 11:31 O2 Del Method Room Air 07/28/24 11:31 O2 Flow Rate 2.5 07/26/24 14:35 Weight last 48 hrs Weight 178 lb 1.6 oz Weight 178 lb 1.6 oz Physical Exam 2 Narrative: Right hip examination: Dressings on in place that is clean dry and intact normal postoperative swelling ecchymosis no signs of infection. Patient's compartments are soft and compressible. Patient is able to wiggle the toes as well as plantarflex and dorsiflex ankle sensations intact light touch distally. Distal pulses are palpable. Able to tolerate logroll examination. Urinary Catheter Management: Lo: Cath Placed During This Visit: yes, but has since been removed by the nurse Reason for Continuing Indwelling Catheter: Chronic Indwelling Urinary Catheter on Admission Urinary Catheter Date of Insertion: 07/28/24 Urinary Catheter Time of Insertion: 11:37 Date Urinary Catheter Removed: 07/27/24 Time Urinary Catheter Discontinued: 15:05 Data 07/29/24 04:59 07/29/24 04:59 A&P Assessment and plan (1) Status post hemiarthroplasty of right hip: (2) Displaced fracture of right femoral neck: Plan Weight-bear as tolerated right lower extremity Posterior hip precautions PT/OT Pain control DVT prophylaxis per primary Change dressing as needed Hospitalist on board as primary Patient will stay an additional day due to low-grade fever being worked up by primary team Patient stable for discharge from an orthopedic standpoint orthopedic surgery team will sign off patient at this time follow peripherally if there is any question pertaining to patient's care for feel free to contact orthopedics on- call. Patient will follow-up with us in the orthopedic office in 2 weeks to receive appropriate discharge instructions. Attestations 2 Medical Necessity Statement*: Ongoing care status post right hip hemiarthroplasty Coding Level of Care Code Acute Code for Chg Fwd Diagnoses Status post hemiarthroplasty of right hip Z96.641 Displaced fracture of right femoral neck S72.001A Time Spent (min) 10
[2024-07-28] MEDS: linezolid 600 mg Tablet PO (17:18)
[2024-07-28] MEDS: atorvastatin 40 mg Tablet 20 MG PO (17:18)
[2024-07-28] MEDS: iron sucrose 200 MG in sodium chloride 0.9% (100 ml) 100 ML 220 MG IV (19:15)
[2024-07-29 04:00] VITALS: BP 114/65; PULSE 78; RESP 17; TEMP 36.7; O2SAT 95
[2024-07-29 05:14] LABS: Basophils % 0.5 %; Eosinophils # 0.3 10^3/uL (0.0-0.8); Eosinophils % 3.4 %; Hematocrit 25.6 % (37-53); Lymphocytes # 1.5 10^3/uL (0.8-4.8); Lymphocytes % 19.4 %; Mean Corpuscular HGB Conc 30.9 g/dL (30-55); Mean Corpuscular Volume 97.3 fl (82-101); Mean Platelet Volume 8.7 fL (7.4-10.4); Monocytes # 0.8 10^3/uL (0.2-0.9); Monocytes % 10.8 %; Neutrophils # 4.96 10^3/uL (1.8-7.7); Neutrophils % 65.4 %; Nucleated Red Blood Cells % 0 %; Platelet Count 224 10^3/cmm (157-399); Red Blood Count 2.63 10^6/uL (3.85-5.65); Red Cell Distribution Width 16.1 % (12.1-15.1); White Blood Count 7.59 10^3/uL (3.29-11.43)
[2024-07-29 05:38] LABS: Alanine Aminotransferase < 5 U/L (0-41); Albumin Level 2.3 g/dL (3.5-5.2); Alkaline Phosphatase 64 U/L (40-130); Anion Gap 11.8 (5-19); Aspartate Amino Transferase 20 U/L (0-40); Blood Urea Nitrogen 16 mg/dL (8-23); Calcium 8.2 mg/dL (8.5-10.5); Carbon Dioxide 24 mmol/L (22-29); Chloride 104 mmol/L (98-107); Globulin 2.8 g/dL (1.3-4.6); Glucose 116 mg/dL (65-115); Osmolality Calculated 284 mOsm/kg (285-295); Potassium 3.8 mmol/L (3.5-5.1); Sodium 136 mmol/L (136-145); Total Bilirubin 0.8 mg/dL (0.15-1.2); Total Protein 5.1 g/dL (6.6-8.7)
[2024-07-29] MEDS: linezolid 600 mg Tablet PO (05:44)
[2024-07-29] MEDS: heparin 5,000 unit/mL INJ 1 mL 5000 UNIT SUBCUT (05:44)
[2024-07-29] MEDS: sucralfate 1 gm Tablet PO ×2 (05:55→11:15)
[2024-07-29 06:00] VITALS: PULSE 70
[2024-07-29 08:00] VITALS: BP 126/79; PULSE 75; RESP 18; TEMP 36.8; O2SAT 96
[2024-07-29] MEDS: calcium carb-vit d 600mg/400unit 1 Tablet 1 EACH PO (08:26)
[2024-07-29] MEDS: TRAMadol 50 mg Tablet PO (08:27)
[2024-07-29] MEDS: methIMAzole 5 MG Tablet PO (08:27)
[2024-07-29] MEDS: sennosides-docusate Tablet 2 TAB PO (08:27)
[2024-07-29] MEDS: metoprolol succinate ER (24 HR) 50 mg Tablet PO (08:27)
[2024-07-29] MEDS: multivitamin therapeutic Tablet 1 TAB PO (08:27)
[2024-07-29] MEDS: aspirin 81 mg EC Tablet PO (08:27)
[2024-07-29] MEDS: pantoprazole 40 mg SDV IVP (08:27)
[2024-07-29] MEDS: chlorhexidine gluconate 0.12% Btl 473 mL 30 ML MUCOUS MEM (08:28)
[2024-07-29] MEDS: mupirocin oint 22 gm 1 APPLIC NASAL (08:28)
--- NOTE | 2024-07-29 10:11 | PM.DCS ---
Discharge Providers Date of Admission: 07/24/24 16:25 Date of Discharge: July 29, 2024 Attending Provider at Admission: Janeth Hills MD Attending Provider at Discharge: Darío Ordaz MD Consults: Orthopedic: Dr. Bean Primary Care Provider: Polo Wisdom DO Diagnoses at Discharge Discharge Diagnosis (1) Status post hemiarthroplasty of right hip: Status: Acute (2) Displaced fracture of right femoral neck: Status: Acute Reason for Visit Reason for Visit: rt hip fx Hospital Course Hospital Course Imtiaz Villegas is a 88 year old male with past medical history of atrial fibrillation on Eliquis for anticoagulation, hyperlipidemia, hypothyroidism, high blood pressure, longterm resident, chronic Lo for urinary retention was sent into the ER today because of hip pain. As per the patient he fell few weeks ago but not really sure how and involved circumstances. In the ER he was found to have a chronic right hip fracture. He is complaining of pain on the right side of hip on movement. Orthopedics was consulted. Patient himself denies any nausea vomiting, headache, dizziness, dysuria, constipation, diarrhea. Denies any hematemesis or melena. Last bowel movement was today morning. Patient was moved to the hospital further evaluation and management of right intertrochanteric hip fracture. Orthopedic was consulted. On admission he was found to have a lower hemoglobin than his baseline which was a month ago. He received 1 and a blood transfusion preoperatively. His hemoglobin posttransfusion preoperatively requiring stable. His home dose of Eliquis was withheld. He did have decub ulcer for which outpatient dressings were continued. He underwent ORIF on 07/26. He did require 1 monitoring of blood transfusion postoperatively but overall his hemoglobin remained stable. Patient unfortunately does not work well with physical therapy and is currently Jaida lift dependent. He has been discharged in medically stable condition back to longterm with advised to hold off on Eliquis for at least 2 weeks. He is to recheck hemoglobin in 1 week from now and 1 week after restarting Eliquis. If there is any downtrend hemoglobin he should follow-up with surgeon as an outpatient for a EGD and colonoscopy. Physical Exam Narrative: General: No acute distress, AO x3, pallor present, chronically sick appearing, elderly HEENT: PERRLA, pupils bilaterally equal and reactive Chest: Bilateral bronchial breath sounds all over lung gomes CVS: S1-S2 regular, no murmurs, no tachycardia, no gallops, no rubs Abdomen: Soft, nontender, no organomegaly, bowel sounds present Neuro: No focal deficits, no facial deformity, AO x3, power not assessed in lower limb because of hip pain Skin: OTHER: Urinary Catheter Management: Lo: Cath Placed During This Visit: yes, but has since been removed by the nurse Reason for Continuing Indwelling Catheter: Chronic Indwelling Urinary Catheter on Admission Urinary Catheter Date of Insertion: 07/28/24 Urinary Catheter Time of Insertion: 11:37 Date Urinary Catheter Removed: 07/27/24 Time Urinary Catheter Discontinued: 15:05 Discharge Data Studies Completed and Pending Completed Studies During Hospitalization Category Date Time Status CT pelvis w con* [id number] Routine Cat Scan 07/24/24 17:02 Completed CXRP [XR chest 1V portable [id number]] Stat Exams 07/24/24 12:37 Completed FL barium swallow modifd [id number] Routine Exams 07/27/24 09:00 Completed XR femur RT min 2V* [id number] Stat Exams 07/24/24 13:09 Completed XR hip RT 2-3V wo/w pel* [id number] Routine Exams 07/26/24 10:31 Completed XR hip RT 2-3V wo/w pel* [id number] Stat Exams 07/24/24 12:37 Completed XR pelvis 1-2V* [id number] Stat Exams 07/24/24 13:09 Completed CV. echo complete* [id number] Routine Ultrasound 07/25/24 17:02 Completed Pending at discharge Category Date Time Status Urine Culture Routine Lab 07/28/24 11:27 Received Radiology Impressions Chest X-Ray 07/24/24 12:37 IMPRESSION: 1. Marked cardiac enlargement with unusual heart shape. This may be due to rotation of the chest however other considerations would include pericardial effusion. 2. The lungs are clear and no acute infiltrates were noted. Femur X-Ray 07/24/24 13:09 IMPRESSION: 1. Chronically displaced subcapital fracture of the RIGHT femur. The femur is otherwise intact. Pelvis X-Ray 07/24/24 13:09 IMPRESSION: 1. No acute pelvic fracture. 2. Chronic hip findings as above. Pelvis CT 07/24/24 17:02 IMPRESSION: 1. Right femur subcapital hip fracture with 1 full shaft displacement. 2. Left hip arthroplasty changes. 3. Aortic atherosclerotic calcifications. 4. Constipation. 5. Diverticulosis without diverticulitis. 6. Anasarca. 7. Lo catheter in the urinary bladder. 8. Right inguinal canal fluid. Hip/Pelvis X-Ray 07/26/24 10:31 IMPRESSION: Intact postoperative hip prosthesis Modified Barium Swallow 07/27/24 09:00 IMPRESSION: 1. Silent episodes of the pharyngeal aspiration with all liquid consistencies along with penetration. 2. Barium tablet swallowed without difficulty. Please see speech therapist report also for recommendations. Laboratory Results WBC 7.59 10^3/uL (3.29-11.43) 07/29/24 04:59 RBC 2.63 10^6/uL (3.85-5.65) L 07/29/24 04:59 Hgb 7.90 g/dL (11.27-16.99) L 07/29/24 04:59 Hct 25.6 % (37-53) L 07/29/24 04:59 MCV 97.3 fl (82-101) 07/29/24 04:59 MCH 30.0 pg (27-33) 07/29/24 04:59 MCHC 30.9 g/dL (30-55) D 07/29/24 04:59 RDW 16.1 % (12.1-15.1) H 07/29/24 04:59 Plt Count 224 10^3/cmm (157-399) 07/29/24 04:59 MPV 8.7 fL (7.4-10.4) 07/29/24 04:59 Neut % (Auto) 65.4 % 07/29/24 04:59 Lymph % (Auto) 19.4 % 07/29/24 04:59 [place] % (Auto) 10.8 % 07/29/24 04:59 Eos % (Auto) 3.4 % 07/29/24 04:59 Baso % (Auto) 0.5 % 07/29/24 04:59 Reticulocyte % (Auto) 3.1 % (0.5-2.0) H 07/25/24 02:33 Neut # (Auto) 4.96 10^3/uL (1.8-7.7) 07/29/24 04:59 Lymph # (Auto) 1.5 10^3/uL (0.8-4.8) 07/29/24 04:59 [place] # (Auto) 0.8 10^3/uL (0.2-0.9) 07/29/24 04:59 Eos # (Auto) 0.3 10^3/uL (0.0-0.8) 07/29/24 04:59 Baso # (Auto) 0.0 10^3/uL (0.0-0.1) 07/29/24 04:59 Nucleated RBC % (auto) 0 % 07/29/24 04:59 Nucleated RBCs # 0.0 /100WBC 07/29/24 04:59 Haptoglobin 248.0 mg/L (30-200) H 07/25/24 02:33 PT 22.00 SECONDS (12.1-14.9) H 07/24/24 13:59 INR 1.85 (0.8-1.2) H 07/24/24 13:59 Sodium 136 mmol/L (136-145) 07/29/24 04:59 Potassium 3.8 mmol/L (3.5-5.1) 07/29/24 04:59 Chloride 104 mmol/L (98-107) 07/29/24 04:59 Carbon Dioxide 24 mmol/L (22-29) 07/29/24 04:59 Anion Gap 11.8 (5-19) 07/29/24 04:59 BUN 16 mg/dL (8-23) 07/29/24 04:59 Creatinine 0.9 mg/dL (0.7-1.2) 07/29/24 04:59 GFR Calculation Not Reportable 07/29/24 04:59 Glucose 116 mg/dL (65-115) H 07/29/24 04:59 Estimat Average Glucose 100 07/25/24 02:33 Hemoglobin A1c 5.1 % (4.0-6.0) 07/25/24 02:33 Calculated Osmolality 284 mOsm/kg (285-295) L 07/29/24 04:59 Calcium 8.2 mg/dL (8.5-10.5) L 07/29/24 04:59 Phosphorus 3.1 mg/dL (2.5-4.5) 07/25/24 02:33 Magnesium 2.1 mg/dL (1.7-2.3) 07/25/24 02:33 Iron 26 ug/dL (59-158) L 07/24/24 13:59 TIBC 169 mcg/dl 07/24/24 13:59 % Saturation 15.3 % (20-50) L 07/24/24 13:59 Unsat Iron Binding 143 ug/dL (112-347) 07/24/24 13:59 Ferritin 253 ng/mL (30-400) 07/25/24 02:33 Total Bilirubin 0.8 mg/dL (0.15-1.2) 07/29/24 04:59 AST 20 U/L (0-40) 07/29/24 04:59 ALT < 5 U/L (0-41) 07/29/24 04:59 Alkaline Phosphatase 64 U/L (40-130) 07/29/24 04:59 Lactate Dehydrogenase 241 U/L (135-225) H 07/25/24 02:33 Total Protein 5.1 g/dL (6.6-8.7) L 07/29/24 04:59 Albumin 2.3 g/dL (3.5-5.2) L 07/29/24 04:59 Globulin 2.8 g/dL (1.3-4.6) 07/29/24 04:59 Triglycerides 52 mg/dL (0-150) 07/25/24 02:33 Cholesterol 79 mg/dL (0-200) 07/25/24 02:33 LDL Cholesterol, Calc 39 mg/dL (50-129) L 07/25/24 02:33 HDL Cholesterol 30 mg/dL (60-100) L 07/25/24 02:33 LDL/HDL Ratio 1.30 RATIO (0.00-3.22) 07/25/24 02:33 Cholesterol/HDL Ratio 2.63 mg/dL (1.0-5.00) 07/25/24 02:33 Vitamin B12 590 pg/mL (232-1245) 07/24/24 13:59 Folate 10.0 ng/mL (4.5-32.2) 07/25/24 02:33 Procalcitonin 0.06 ng/mL (0-0.5) 07/25/24 02:33 TSH 2.43 uIU/mL (0.27-4.20) 07/24/24 13:59 Urine Color [place] (Yellow) A 07/28/24 11:27 Urine Appearance Cloudy (CLEAR) A 07/28/24 11:27 Urine pH 5.0 (5-7) 07/28/24 11:27 Ur Specific [place] 1.027 (1.005-1.030) 07/28/24 11:27 Urine Protein 1+ (Negative) A 07/28/24 11: Urine Glucose (UA) Negative (Normal) 07/28/24 11:27 Urine Ketones Trace (Negative) 07/28/24 11:27 Urine Blood Trace (Negative) A 07/28/24 11: Urine Nitrate Positive (Negative) A 07/28/24 11: Urine Bilirubin 1+ (Negative) H 07/28/24 11: Urine Urobilinogen 1.0 mg/dL (Negative) 07/28/24 11: Ur Leukocyte Esterase 1+ (Negative) A 07/28/24 11:27 Urine RBC 6-10 /hpf (0-2) 07/28/24 11:27 Urine WBC 21-50 /hpf (0-5) H 07/28/24 11:27 Ur Squamous Epith Cells 0-5 /hpf (0-5) 07/28/24 11:27 Amorphous Sediment Not Reportable 07/28/24 11:27 Urine Bacteria None seen /hpf (NONE) 07/28/24 11: Hyaline Casts 9.91 /lpf 07/28/24 11:27 Urine Yeast 2+ /hpf H 07/28/24 11:27 Nasal MRSA (PCR) Mrsa detected (Negative) A 07/28/24 13:05 Adenovirus (PCR) Not detected (NOT DETECT) 07/28/24 13:05 C. pneumoniae DNA (PCR) Not detected (NOT DETECT) 07/28/24 13:05 Coronavirus 229E (PCR) Not detected (NOT DETECT) 07/28/24 13:05 Human Metapneumovir PCR Not detected (NOT DETECT) 07/28/24 13:05 Influenza A (H1) PCR Not detected (NOT DETECT) 07/28/24 13:05 Influ A (H1/09) PCR Not detected (NOT DETECT) 07/28/24 13:05 Influenza A (H3) PCR Not detected (NOT DETECT) 07/28/24 13:05 Influenza Type A (PCR) Not detected (NOT DETECT) 07/28/24 13:05 Influenza Type B (PCR) Not detected (NOT DETECT) 07/28/24 13:05 M. pneumoniae (PCR) Not detected (NOT DETECT) 07/28/24 13:05 Parainfluenza 1 (PCR) Not detected (NOT DETECT) 07/28/24 13:05 Parainfluenza 2 (PCR) Not detected (NOT DETECT) 07/28/24 13:05 Parainfluenza 3 (PCR) Not detected (NOT DETECT) 07/28/24 13:05 Parainfluenza 4 (PCR) Not detected (NOT DETECT) 07/28/24 13:05 RSV Type A (PCR) Not detected (NOT DETECT) 07/28/24 13:05 RSV Type B (PCR) Not detected (NOT DETECT) 07/28/24 13:05 Entero/Rhino (PCR) Not detected (NOT DETECT) 07/28/24 13:05 SARS-CoV-2 (PCR) Not detected (NOT DETECT) 07/28/24 13:05 Blood Type O Positive 07/25/24 09:50 Rho(D) Type Rh positive 07/25/24 09:50 Antibody Screen Negative 07/25/24 09:50 Crossmatch See Detail 07/25/24 09:50 Vitals Last Vital Signs Temp 98.3 F 07/29/24 08:00 Pulse 75 07/29/24 08:00 Resp 18 07/29/24 08:00 BP 126/79 07/29/24 08:00 Pulse Ox 96 07/29/24 08:00 O2 Del Method Room Air 07/29/24 04:00 O2 Flow Rate 2.5 07/26/24 14:35 Discharge Plan Discharge Patient Disposition: Xfer SNF Condition: Stable Prescriptions: New sucralfate 1 gram Tablet 1 g PO AC&BEDTIME 30 Days Qty: 120 0RF linezolid 600 mg Tablet 600 mg PO Q12H 5 Days Qty: 10 0RF pantoprazole [Protonix] 40 mg tablet,delayed release (DR/EC) 40 mg PO BID Qty: 60 0RF Rx Instructions: twice a day for 2 weeks f/b once a day Continued loperamide [Anti-Diarrheal (loperamide)] 2 mg capsule 2 mg PO Q6H PRN (Reason: Diarrhea) metoprolol succinate 50 mg tablet extended release 24 hr 50 mg PO DAILY Qty: 14 0RF tramadol 50 mg tablet 50 mg PO BID Qty: 60 5RF bisacodyl 10 mg Suppository 10 mg ME DAILY acetaminophen [Tylenol] 325 mg Tablet 650 mg PO Q6H PRN (Reason: Pain) aspirin 81 mg Tablet,Delayed Release (Dr/Ec) 81 mg PO DAILY magnesium hydroxide [Milk of Magnesia] 400 mg/5 mL Suspension 10 ml PO DAILY PRN (Reason: Constipation) methimazole 5 mg Tablet 5 mg PO DAILY zinc oxide Ointment 1 applic TOPICAL QPM PRN (Reason: apply to buttock nightly) guaifenesin 200 mg/5 mL Liquid 400 mg PO Q4H Rx Instructions: take 10 ml b mouth every 4 hours as needed artificial tears with lanolin Ointment 1 applic OPHTHALMIC (EYE) Q8H cholecalciferol (vitamin D3) [Vitamin D3] 125 mcg (5,000 unit) Tablet 125 mcg PO DAILY camphor-menthol 0.2-3.5 % Gel 1 applic TOPICAL Q4H PRN (Reason: Pain) Rx Instructions: rub in gently and completely MediHoney (honey) 80 % Gel 1 applic TOPICAL DAILY cefdinir 300 mg Capsule 300 mg PO Q12H 5 Days Qty: 10 0RF Changed atorvastatin 40 mg Tablet 20 mg PO QPM Qty: 30 0RF Held Eliquis 5 mg Tablet 5 mg PO BID Hold Instructions: Resume on 08/12/24. Discharge Orders: Discharge Order (Routine); Ordered 07/29/24 Ordered By: Darío Ordaz Referrals: [facility] [Outside] Polo Wisdom DO [Primary Care Provider] - 2 weeks (We have notified your physician's clinic of the need for a follow-up appointment to be scheduled. If you have not heard from them within the next 2 business days, please call them directly. ) Jimmy Bean DO [Physician] - 08/17/24 10:00 am () Discharge Diet: Regular Discharge Activity: Resume usual activity and Increase activity as tolerated Patient Instructions: Sucralfate (By mouth), Pantoprazole (By mouth), Linezolid (By mouth), Acute Wound Care (DC), Opioid Safety, Post Anesthesia Care Activity Restrictions/Additional Instructions: Orthopedic discharge instructions: Patient should keep dressings clean dry and intact Okay to shower over dressings if they do become wet these should be removed and new dressings applied Keep incisions clean dry and intact, leave Silverlon bandage dressings on in place for 7 days after that may rinse incisions with warm soapy water pat dry and redress with a dry dressing Weight-bear as tolerated to operative lower extremity Posterior hip precautions as instructed by physical therapy--posterior avoid hip flexion past 90 degrees, adduction, avoid internal rotation When sleeping or lying in bed in supine position use abduction pillow to prevent legs from crossing midline Ice as needed for pain and swelling Take pain medication as prescribed per primary Take antinausea medication as needed Supplement with Citracal vitamin D for bone health and healing Pain medication can cause constipation. take [id number] stool softeners and or MiraLAX. Resume your previously prescribed eliquis per primary Follow-up in the orthopedic office in 2 weeks Contact the office for any questions or concerns Hold Eliquis for next 2 weeks. Recheck hemoglobin in 1 week. Recheck hemoglobin 1 week after starting Eliquis. If hemoglobin trends down you should have a colonoscopy as an outpatient. Take Protonix twice daily for next 2 weeks followed by once daily. Take Carafate 4 times a day before meals for next 4 weeks. Discharge Attestations Time Spent in Discharge Care*: greater than 30 min Quality Metrics Clinical Quality Measures [ No reported AMI, CVA or VTE this stay] Coding Level of Care Code Acute Code for Chg Fwd Diagnoses Status post hemiarthroplasty of right hip Z96.641 Displaced fracture of right femoral neck S72.001A
[2024-07-29 11:16] VITALS: RESP 16
[2024-07-29] MEDS: oxyCODONE 5 mg IR Tab/Cap PO (11:16)
--- NOTE | 2024-07-29 12:27 | PC.SOCIAL ---
IMM Updated. Updated pt on IMM. No questions voiced. Provided pt a copy. Initialed, dated, & timed copy in chart.
[2024-07-29] MEDS: cefTRIAXone 1,000 mg SDV 1000 MG IVP (14:02)
[2024-07-29 14:15] VITALS: BP 126/79; PULSE 76; O2SAT 96
== END 2024-07-29 14:17 | disposition skilled nursing facility (03) | DRG 522 ==
LOC: ER 15:06 → MEDSURG 16:25
PROVIDERS: Student in an Organized Health Care Education/Training Program; Admitting Provider Student in an Organized Health Care Education/Training Program; Emergency Provider Emergency Medicine; PCP Family Medicine; Visit Provider Student in an Organized Health Care Education/Training Program
PROC: 0SRR01Z Replacement of Right Hip Joint, Femoral Surface with Metal Synthetic Substitute, Open Approach (ICD-10-PCS; CPT 27125; principal; 2024-07-26 08:00)
DX: S72.011A Unspecified intracapsular fracture of right femur, initial encounter for closed fracture (principal); I48.21 Permanent atrial fibrillation; I50.22 Chronic systolic (congestive) heart failure; I42.9 Cardiomyopathy, unspecified; W19.XXXA Unspecified fall, initial encounter; Y92.129 Unspecified place in nursing home as the place of occurrence of the external cause; R26.81 Unsteadiness on feet; I11.0 Hypertensive heart disease with heart failure; F03.A0 Unspecified dementia, mild, without behavioral disturbance, psychotic disturbance, mood disturbance, and anxiety; H57.051 Tonic pupil, right eye; I25.10 Atherosclerotic heart disease of native coronary artery without angina pectoris; Z96.642 Presence of left artificial hip joint; R19.5 Other fecal abnormalities; L89.152 Pressure ulcer of sacral region, stage 2; D64.9 Anemia, unspecified; R33.9 Retention of urine, unspecified; E03.9 Hypothyroidism, unspecified; E78.5 Hyperlipidemia, unspecified; Z11.52 Encounter for screening for COVID-19; Z79.82 Long term (current) use of aspirin; Z79.01 Long term (current) use of anticoagulants; Z86.73 Personal history of transient ischemic attack (TIA), and cerebral infarction without residual deficits; Z95.810 Presence of automatic (implantable) cardiac defibrillator
CPT/HCPCS: 36415; 36430; 51702; 71045; 72170; 72193; 73502; 73552; 74230; 80053; 80061; 81001; 82274; 82607; 82728; 82746; 83010; 83036; 83540; 83550; 83615; 83735; 84100; 84145; 84443; 85025; 85045; 85610; 86850; 86900; 86920; 87086; 87486; 87581; 87633; 92507; 92523; 92526; 92610; 92611; 93005; 93306; 94664; 96372; 97162; 97167; 97530; 97535; 99285; C1776; J0131; J0690; J0696; J1644; J1756; J1885; J2270; J2371; J2470; J2704; J3010; J3370; P9016; P9040; P9045

== ENCOUNTER → 2024-10-14 16:14 | Outpatient (BNVA) | payer MEDICARE, MEDICAID, SELFPAY | PROVIDERS: PCP Family Medicine; Visit Provider Family Medicine | DX: R30.0 Dysuria (principal) | CPT/HCPCS: 81000; 87077; 87086; 87184 ==